=== PATIENT | female | born 1945 | race Caucasian/White ===

== ENCOUNTER 2020-05-15 18:53 | Inpatient (IN) | payer OTHER ==
--- OUTSIDE RECORDS SUMMARY | 2020-05-15 18:55 | XMS REPORT | Continuity of Care Document ---
:1945 Author Organization [facility] t Address [address] [place] [address] Dr. [address]. [address] [place] [address] Care Team Providers Name Role Phone Lab, [facility]bin Pob I Attending Clinician Unavailable Problems This patient has no known problems. Allergies, Adverse Reactions, Alerts This patient has no known allergies or adverse reactions. Medications This patient has no known medications. Procedures This patient has no known procedures. Encounters Start End Encounter Admission Attending Care Care Encounter Source Date/Time Date/Time Type Type Clinicians Facility Department ID 2020-05-09 2020-05-09 Laboratory Lab, Adc [facility] [id number] 17:09:28 17:29:28 Only Fam Pob I [facility] [id number] [place] [id number] Jeri [id number] [address]al [address] Results This patient has no known results.
--- OUTSIDE RECORDS SUMMARY | 2020-05-15 18:55 | XMS REPORT | Summary of Care ---
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 [address] [place] [address] Exposure to Medicine - [place] [facility], Adc Fam Pob I SARS-associated [address] [place] [address] coronaviru s ([address] Dx) [place] [address] Allergies Not on Filedocumented as of this encounter (statuses as of 05/09/2020) Medications Not on filedocumented as of this encounter (statuses as of 05/09/2020) Active Problems Not on filedocumented as of this encounter (statuses as of 05/09/2020) Social History Tobacco Use Types Packs/Day Years Used Date Never Assessed Sex Assigned at Date Recorded Not on file COVID-19 Exposure Response Date Recorded In the last month, have you been in contact with No / Unsure 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 documented as of this encounter Last Filed Vital Signs Not on filedocumented in this encounter Nursing Notes Roselyn Mae MA - 05/09/2020 5:00 PM CSTMarcimino Waite is a 74 year old female here for COVID Screening with a Nasopharyngeal Swab All droplet and contact precautions taken with appropriate PPE worn while interacting with patient. ? Goggles ? N95 Mask ? Gloves ? Gown RR: 16 Pulse: 75 O2: 96% Patient educated on plan of care for visit, swabbing technique, risks and benefits of test and length of time to receive results. Verbal consent obtained to perform test. CDC Fact Sheet for Patients nCoV Diagnostic Panel dated 07/01/2019 and Factsheet What to Do if Sick with COVID 19 06/11/19 provided. Patient swabbed per appropriate nasopharyngeal technique, and patient tolerated well. Patient was discharged from the testing clinic in stable condition. 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 documented in this encounter Plan of Treatment Name Type Priority Associated Diagnoses Order S maulik COVID-19 (MOLECULAR LAB Routine Exposure to Expected : 05/09/2020, TESTING SARS-associated Expires: 022 NUCLEIC ACID coronavirus AMPLIFICATION) Health Maintenance Due Date Last Done Comments HEPATITIS C (HCV) SCREEN 1945 Depression Screening 1956 DTaP,Tdap,and Td Vaccines (1 - Tdap) 12/06/1963 Breast Cancer Screening (MAMMOGRAM) 1984 COLON CANCER SCREENING ANNUAL FIT/FOBT 1994 COLON CANCER SCREENING FIT DNA EVERY 3 YEARS 1994 COLON CANCER SCREENING SIGMOIDOSCOPY EVERY 5 YEARS 1994 COLONOSCOPY 1994 Colorectal Cancer Screening 1994 Zoster Recombinant Vaccine (SHINGRIX) (1 of 2) 1994 Medicare Wellness Visit 2009 Osteoporosis Screening 2009 PNEUMOCOCCAL VACCINES 65+ (1 of 1 - PPSV23) 2009 INFLUENZA VACCINE (#1) 2019 documented as of this encounter Results Not on filedocumented in this encounter Visit Diagnoses Diagnosis Exposure to SARS-associated coronavirus - Primary documented in this encounter Additional Health Concerns Infection Onset Date Last Indicated Resolved Time COVID-19 Rule Out 05/09/2020 05/09/2020 documented as of this encounter Insurance Payer Benefit Plan / Subscriber ID Effective Phone Address T e Group Dates [facility] [id number] 2020-Prese Medic are Adv HEALTHCARE - HEALTHCARE nt HMO MANAGED MEDICARE ADV MEDICARE HMO documented as of this encounter
[2020-05-15 19:45] LABS: Protime INR 1.03
[2020-05-15] MEDS ORDERED: NA CHLORIDE 0.9% 1,000 ML ONE (19:59)
[2020-05-15] MEDS ORDERED: METHYLPREDNISOLONE 125 MG INJ ONE (19:59)
[2020-05-15] MEDS ORDERED: IBUPROFEN 400 MG TAB ONE (19:59)
[2020-05-15] MEDS ORDERED: IBUPROFEN 200 MG TAB PO ONE (19:59)
[2020-05-15 20:10] LABS: ALT/SGPT 48 U/L (12-78); AST/SGOT 69 U/L (15-37); Albumin 2.9 g/dL (3.4-5.0); Alkaline Phosphatase 55 U/L (45-117); BUN Blood Urea Nitrogen 22 mg/dL (7-18); Bicarbonate 23 mmol/L (21-32); Bilirubin Direct 0.3 mg/dL (0-0.2); Bilirubin Total 0.7 mg/dL (0.2-1.0); Ferritin 847.5 ng/mL (8-388); Glucose Level 120 mg/dL (74-106); Potassium 3.4 mmol/L (3.5-5.1); Protein, Total 6.9 g/dL (6.4-8.2); Sodium Level 137 mmol/L (136-145); Troponin (Emerg Dept Use Only) < 0.02 ng/mL (0.0-0.045)
--- NOTE | 2020-05-15 20:10 | RAD REPORT ---
EXAM DESCRIPTION: RAD - Chest Single View - 05/15/2020 8:03 pm CLINICAL HISTORY: Cough;Dyspnea Chest pain. COMPARISON: No comparisons FINDINGS: Portable technique limits examination quality. Mild to moderate pulmonary opacities are present bilaterally likely related to viral infection. The h eart is mildly enlarged in size. No displaced fractures.
[2020-05-15] MEDS ORDERED: NA CHLORIDE 0.9% 500 ML ONE ×4 (20:52→21:54)
--- NOTE | 2020-05-15 20:52 | RAD REPORT ---
EXAM DESCRIPTION: US - Extremity Venous Uni Ltd - 05/15/2020 7:53 pm CLINICAL HISTORY: SWELLING Leg swelling and edema. COMPARISON: No comparisons FINDINGS: Left lower extremity venous system was interrogated with Doppler technique. Normal flow, c ompressibility and augmentation was noted. There is no DVT present. IMPRESSION: No evidence of left lower extremity deep venous thrombosis.
--- NOTE | 2020-05-15 20:56 | RAD REPORT ---
EXAM DESCRIPTION: CT - Chest For Pe Angio - 05/15/2020 8:45 pm CLINICAL HISTORY: Chest pain. Dyspnea;Cough COMPARISON: No comparisons TECHNIQUE: CT angiogram of the pulmonary arteries was performed with MIP. All CT scans are performed using dose optimization technique as appropriate and may include automated exposure control or mA/KV adjustment according to patient size. FINDINGS: No evidence of pulmonary thromboembolism. No acute aortic finding demonstrated. Moderate interstitial alveolar lung opacities are present greatest along the periphery of both lungs and in the lung bases compatible COVID-19 infection. No significant pericardial or pleural fluid. No concerning bony finding. IMPRESSION: No evidence of pulmonary thromboembolism. Moderate findings which would be compatible with COVID-19 infection as detailed.
[2020-05-15] MEDS ORDERED: CALCIUM GLUCONATE 1 GM IVPB 1 GM/50 ML BAG IV ONE (21:32)
[2020-05-15] MEDS ORDERED: KCL 20 MEQ/100 mL IVPB 20 MEQ/100 ML BAG IV ONE (21:32)
--- NOTE | 2020-05-15 21:40 | ER ---
Nurse's Notes [facility] Name: Pauly Waite Age: 74 yrs Sex: Female : 1945 Arrival Date: 05/15/2020 Time: 18:55 Bed 25 Private MD: Diagnosis: Coronavirus infection, unspecified;Pneumonia, unspecified organism;Hypotension, unspecified;Sepsis, unspecified organism Presentation: 05/15 19:05 Chief complaint: Patient states: Covid+ 05/08/2020. S/S started 05/05/2020. Here cause I ca1 don't seem to get better. All I want to do is sleep and I have not eaten anything in over a week. Persistent fever. Tylenol last dose at 1700 today. Coronavirus screen: Client reports previous positive COVID test result. Date of collection: May 08, 2020 Staff notified of need for isolation. Ebola Screen: Patient negative for fever greater than or equal to 101.5 degrees Fahrenheit, and additional compatible Ebola Virus Disease symptoms Patient denies exposure to infectious person. Patient denies travel to an Ebola-affected area in the 21 days before illness onset. No symptoms or risks identified at this time. Initial Sepsis Screen: Does the patient meet any 2 criteria? Temp <36.0*C (96.8*F)) or > 38.3*C (100.9*F). Mean Arterial Pressure (MAP) < 65. Yes Does the patient have a suspected source of infection? Yes: Productive cough/pneumonia. Risk Assessment: Do you want to hurt yourself or someone else? Patient reports no desire to harm self or others. Onset of symptoms was May 15, 2020. 19:05 Method Of Arrival: Wheelchair ca1 19:05 Acuity: TESHA 2 ca1 Triage Assessment: 19:30 General: Appears in no apparent distress. Behavior is calm, cooperative, appropriate ll2 for age. Historical: - Allergies: 19:10 No Known Allergies; ca1 - Home Meds: 19:10 losartan oral oral [Active]; ca1 - PMHx: 19:10 Hypertension; Thyroid problem; ca1 - PSHx: 19:10 None; ca1 - Family history:: not pertinent. - Hospitalizations: : No recent hospitalization is reported. Screenin:20 Abuse screen: Denies threats or abuse. Nutritional screening: No deficits noted. ll2 Tuberculosis screening: No symptoms or risk factors identified. Fall Risk None identified. Assessment: 19:30 Reassessment: notified provider of pt blood pressure. remains low. ordered bolus. zb 20:45 Reassessment: notified provider bp remains low. bolus ordered. zb 22:19 Reassessment: Reassessment: notified provider of patient blood pressure remains low. zb 23:15 Reassessment: Patient and/or family updated on plan of care and expected duration. Pain ll2 level reassessed. Patient is alert, oriented x 3, equal unlabored respirations, skin warm/dry/pink. 05/16 00:15 Reassessment: Patient and/or family updated on plan of care and expected duration. Pain ll2 level reassessed. Patient is alert, oriented x 3, equal unlabored respirations, skin warm/dry/pink. Pain: Denies pain. Vital Signs: 05/15 19:05 BP 73 / 46; Pulse 66; Resp 18 S; Temp 101(O); Pulse Ox 88% on R/A; Weight 75.75 kg (R); ca1 Height 5 ft. 4 in. (162.56 cm) (R); Pain 0/10; 22:12 BP 80 / 41; Pulse 56; Resp 9; Pulse Ox 90% on 2 lpm NC; ll2 22:32 BP 82 / 47; rn 23:15 BP 97 / 53; Pulse 66; Resp 22; Pulse Ox 94% on 2 lpm NC; ll2 05/16 00:15 BP 80 / 47; Pulse 55; Resp 16; Pulse Ox 94% on 2 lpm NC; ll2 05/15 19:05 Body Mass Index 28.67 (75.75 kg, 162.56 cm) ca1 ED Course: 05/15 18:55 Patient arrived in ED. as 19:09 Triage completed. ca1 19:10 Soy Jonas MD is Attending Physician. rn 19:10 Arm band placed on right wrist. ca1 19:20 Patient has correct armband on for positive identification. Placed in gown. Bed in low ll2 position. Call light in reach. Side rails up X 1. monitor worker on. Pulse ox on. NIBP on. 19:20 No provider procedures requiring assistance completed. Inserted saline lock: 20 gauge ll2 in right antecubital area, using aseptic technique. Blood collected. 19:34 Mandy Gibson, RN is Primary Nurse. ll2 19:38 D-Dimer Sent. ll2 19:38 Blood Culture Adult (2) Sent. ll2 19:38 BMP Sent. ll2 19:38 C-Reactive Protein Sent. ll2 19:38 Troponin (emerg Dept Use Only) Sent. ll2 19:38 Ptt, Activated Sent. ll2 19:38 PT-INR Sent. ll2 19:38 Procalcitonin Sent. ll2 19:38 LFT's Sent. ll2 19:38 Lactate Sent. ll2 19:39 Ferritin Sent. ll2 21:40 Bassam Chavez is Hospitalizing Provider. rn 05/17 07:53 Primary Nurse role handed off by Mandy Gibson RN sv 12:51 Patient admitted, IV remains in place. ss Administered Medications: 05/15 19:58 Drug: NS 0.9% 1000 ml Route: IV; Rate: 1000 ml; Site: right antecubital; ll2 20:40 Follow up: Response: No adverse reaction; IV Intake: 1000ml ll2 19:59 Drug: SOLU-Medrol 125 mg Route: IVP; Site: right antecubital; ll2 20:58 Follow up: Response: No adverse reaction ll2 19:59 Drug: Motrin 600 mg Route: PO; ll2 22:23 Follow up: Response: No adverse reaction ll2 20:00 Drug: NS 0.9% 500 ml Route: IV; Rate: bolus; Site: right antecubital; zb 21:00 Drug: NS 0.9% 500 ml Route: IV; Rate: bolus; Site: right antecubital; zb 22:15 Follow up: Response: No adverse reaction; IV Status: Completed infusion; IV Intake: ll2 500ml 21:33 Drug: Calcium Gluconate 1 grams Route: IVPB; Infused Over: 60 mins; Site: right ll2 antecubital; 22:35 Follow up: Response: No adverse reaction; IV Status: Completed infusion; IV Intake: ll2 100ml 22:00 Drug: NS 0.9% 500 ml Route: IV; Rate: bolus; Site: right antecubital; zb 23:00 Follow up: Response: No adverse reaction; IV Status: Completed infusion ll2 22:57 Drug: Potassium Chloride 10 mEq Route: IV; Rate: calculated rate; Site: right ll2 antecubital; 05/16 00:00 Follow up: Response: No adverse reaction; IV Status: Completed infusion; IV Intake: [id number] 00:30 Drug: Levophed (4 mg/250 mL D5W 4 mcg/min Route: IV; Rate: calculated rate; Site: right ll2 femoral; Point of Care Testing: Blood Glucose: 00:00 Blood Glucose: 127 mg/dL; ll2 Ranges: Intake: 05/15 20:40 IV: 1000ml; Total: 1000ml. ll2 22:15 IV: 500ml; Total: 1500ml. ll2 22:35 IV: 100ml; Total: 1600ml. ll2 05/16 00:00 IV: 50ml; Total: 1650ml. ll2 Outcome: 05/15 21:40 Decision to Hospitalize by Provider. rn 05/17 12:51 Admitted to ER Hold. Please see [facility] for further documentation. ss Instructed on the need for admit. 12:53 Patient left the ED. ss Signatures: Mony Prakash, RN RN Elizabeth Vance Roman, MD MD rn Smirch, Shelby, RN RN ss Amanda Naqvi RN RN ca1 Mandy Gibson RN RN ll2 Anel Joshi RN RN zb Corrections: (The following items were deleted from the chart) 05/15 19:18 19:05 Chief complaint: Patient states: Covid+ 05/08/2020. S/S started 05/05/2020. Here ca1 cause I don't seem to get better. All I want to do is sleep and I have not eaten anything in over a week. Persistent fever ca1 22:55 22:19 Reassessment: henok whiting
--- NOTE | 2020-05-15 21:41 | EDPHYS ---
Physician Documentation [facility] Name: Pauly Waite Age: 74 yrs Sex: Female : 1945 Arrival Date: 05/15/2020 Time: 18:55 Bed 25 Private MD: ED Physician Soy Jonas HPI: 05/15 19:18 This 74 yrs old Female presents to ER via Wheelchair with complaints of Fever rn - covid+. 19:18 The patient reports fever, not measured (subjective). Onset: The symptoms/episode rn began/occurred 1 week(s) ago. Modifying factors: there are no obvious modifying factors. Associated signs and symptoms: Pertinent positives: cough, Pertinent negatives: abdominal pain, altered mental status, diarrhea, skin rash. Severity of symptoms: At their worst the symptoms were mild in the emergency department the symptoms are unchanged. The patient has not experienced similar symptoms in the past. The patient has not recently seen a physician. Reports began with cough 1 week ago, tested and COVID +, reports mild SOB and non-productive cough. . Historical: - Allergies: 19:10 No Known Allergies; ca1 - Home Meds: 19:10 losartan oral oral [Active]; ca1 - PMHx: 19:10 Hypertension; Thyroid problem; ca1 - PSHx: 19:10 None; ca1 - Family history:: not pertinent. - Hospitalizations: : No recent hospitalization is reported. ROS: 19:18 Constitutional: + fever Eyes: Negative for injury, pain, redness, and discharge, Neck: rn Negative for injury, pain, and swelling, Cardiovascular: Negative for chest pain, palpitations, and edema, Respiratory: + cough and mild sob Abdomen/GI: Negative for abdominal pain, nausea, vomiting, diarrhea, and constipation, Back: Negative for injury and pain, MS/Extremity: Negative for injury and deformity, Skin: Negative for injury, rash, and discoloration, Neuro: Negative for headache, numbness, tingling, and seizure. Exam: 19:18 Constitutional: This is a well developed, well nourished patient who is awake, alert, rn and in no acute distress. Head/Face: Normocephalic, atraumatic. ENT: dry MM Cardiovascular: Regular rate and rhythm. No pulse deficits. Respiratory: No increased work of breathing, no retractions or nasal flaring. Abdomen/GI: Soft, non-tender Skin: Warm, dry MS/ Extremity: Pulses equal, no cyanosis. Neurovascular intact. Full, normal range of motion. LLE > RLE circumference Neuro: Awake and alert, GCS 15 Vital Signs: 19:05 BP 73 / 46; Pulse 66; Resp 18 S; Temp 101(O); Pulse Ox 88% on R/A; Weight 75.75 kg (R); ca1 Height 5 ft. 4 in. (162.56 cm) (R); Pain 0/10; 22:12 BP 80 / 41; Pulse 56; Resp 9; Pulse Ox 90% on 2 lpm NC; ll2 22:32 BP 82 / 47; rn 23:15 BP 97 / 53; Pulse 66; Resp 22; Pulse Ox 94% on 2 lpm NC; ll2 05/16 00:15 BP 80 / 47; Pulse 55; Resp 16; Pulse Ox 94% on 2 lpm NC; ll2 05/15 19:05 Body Mass Index 28.67 (75.75 kg, 162.56 cm) ca1 Procedures: 05/15 23:32 Central Line: the site was prepped with Betadine, in sterile fashion, a triple lumen jr8 catheter was inserted, in the right femoral vein, in 1 attempts. placement was verified, by blood return, the site was dressed with 4X4s, Tegaderm, foam tape, using sterile technique, the patient tolerated the procedure, well. MDM: 19:10 Patient medically screened. rn 21:38 Differential diagnosis: viral Infection, URI, pneumonia. Data reviewed: vital signs, rn nurses notes, lab test result(s), EKG, radiologic studies, CT scan, plain films, and as a result, I will admit patient. Counseling: I had a detailed discussion with the patient and/or guardian regarding: the historical points, exam findings, and any diagnostic results supporting the discharge/admit diagnosis, lab results, radiology results, the need for further work-up and treatment in the hospital. Response to treatment: There is no appreciated change of the patient's symptoms at this time, and as a result, I will admit patient. Admission orders: after a detailed discussion of the patient's condition and case, the admit orders are written by me. ED course: Pt with COVID pneumonia, with oxygen requirement and hypotension, will admit to Dr. Chavez in ICU, completing fluid challenge, may need central line for pressors, will reeval. . 22:46 ED course: Central line being placed by admitting service, PA. Roge. rn 05/15 19:18 Order name: D-Dimer rn 05/15 19:18 Order name: Blood Culture Adult (2) rn 05/15 19:18 Order name: BMP rn 05/15 19:18 Order name: C-Reactive Protein rn 05/15 19:18 Order name: CBC with Diff; Complete Time: 22:37 rn 05/15 19:18 Order name: Ferritin rn 05/15 19:18 Order name: Lactate rn 05/15 19:18 Order name: LFT's rn 05/15 19:18 Order name: Procalcitonin rn 05/15 19:18 Order name: PT-INR rn 05/15 19:18 Order name: Ptt, Activated rn 05/15 19:18 Order name: Troponin (emerg Dept Use Only) rn 05/15 19:50 Order name: Protime (+INR); Complete Time: 19:51 EDMS 05/15 19:50 Order name: PTT, Activated Partial Thromb; Complete Time: 19:51 EDMS 05/15 19:50 Order name: D-Dimer; Complete Time: 19:51 EDMS 05/15 20:10 Order name: Basic Metabolic Panel; Complete Time: 20:11 EDMS 05/15 20:10 Order name: Liver (Hepatic) Function; Complete Time: 20:11 EDMS 05/15 20:10 Order name: Troponin (Emerg Dept Use Only); Complete Time: 20:11 EDMS 05/15 20:10 Order name: C-Reactive Protein; Complete Time: 20:11 EDMS 05/15 20:10 Order name: Ferritin; Complete Time: 20:11 EDMS 05/15 20:10 Order name: Lactate; Complete Time: 20:11 EDMS 05/15 21:04 Order name: Procalcitonin; Complete Time: 21:10 EDMS 05/15 22:28 Order name: Glucose, Ancillary Testing; Complete Time: 22:37 EDMS 05/15 23:46 Order name: ABG; Complete Time: 07:09 rn 05/15 23:58 Order name: Urine Microscopic Only jr8 05/16 04:06 Order name: Urine Dipstick--Ancillary (enter results) tt3 05/16 04:32 Order name: UR PROTEIN; Complete Time: 07:09 EDMS 05/15 19:18 Order name: CXR XRAY rn 05/15 19:22 Order name: Extremity Venous Uni Ltd US rn 05/15 19:52 Order name: CT Chest For PE Angio rn 05/15 20:11 Order name: RAD; Complete Time: 20:33 EDMS 05/15 20:53 Order name: US; Complete Time: 21:10 EDMS 05/15 20:58 Order name: CT; Complete Time: 21:10 EDMS 05/16 04:55 Order name: Urine Microscopic Only; Complete Time: 07:09 EDMS 05/16 05:13 Order name: SARS-COV-2 RT PCR; Complete Time: 07:09 EDMS 05/16 05:46 Order name: CBC with Automated Diff; Complete Time: 07:09 EDMS 05/16 06:10 Order name: Cortisol; Complete Time: 07:09 EDMS 05/16 06:20 Order name: Osmolality, Urine; Complete Time: 07:09 EDMS 05/16 06:49 Order name: Basic Metabolic Panel; Complete Time: 07:09 EDMS 05/16 06:49 Order name: Lipid Profile; Complete Time: 07:09 EDMS 05/16 06:49 Order name: C-Reactive Protein; Complete Time: 07:09 EDMS 05/16 06:49 Order name: Thyroid Stimulating Hormone; Complete Time: 07:09 EDMS 05/16 06:49 Order name: Ferritin; Complete Time: 07:09 EDMS 05/16 06:53 Order name: CBC Smear Scan; Complete Time: 07:09 EDMS 05/16 12:21 Order name: US; Complete Time: 07:09 EDMS 05/16 14:35 Order name: Gram Stain--Aerobic Bottle EDMS 05/16 14:35 Order name: Gram Stain--Anaerobic Bottle EDMS 05/17 05:47 Order name: Renal Panel; Complete Time: 07:09 EDMS 05/17 05:47 Order name: Magnesium; Complete Time: 07:09 EDMS 05/17 06:47 Order name: PTH Intact; Complete Time: 07:09 EDMS 05/17 07:46 Order name: Urine Culture EDMS 05/17 09:02 Order name: Vancomycin Level Trough EDMO 05/15 19:18 Order name: EKG; Complete Time: 19:19 rn 05/15 19:18 Order name: Cardiac monitoring; Complete Time: 19:34 rn 05/15 19:18 Order name: Droplet/Contact Precautions; Complete Time: 19:38 rn 05/15 19:18 Order name: EKG - Nurse/Tech; Complete Time: 19:38 rn 05/15 19:18 Order name: IV Start; Complete Time: 19:35 rn 05/15 19:18 Order name: Labs collected and sent; Complete Time: 19:35 rn 05/15 19:18 Order name: O2 Per Protocol; Complete Time: 19:35 rn 05/15 19:18 Order name: O2 Sat Monitoring; Complete Time: 19:34 rn 05/15 22:04 Order name: Glucose Level; Complete Time: 22:25 rn 05/15 23:37 Order name: CONS Physician Consult EDMO 05/15 23:58 Order name: Urine Dipstick-Ancillary (obtain specimen); Complete Time: 04:05 jr8 Administered Medications: 19:58 Drug: NS 0.9% 1000 ml Route: IV; Rate: 1000 ml; Site: right antecubital; ll2 20:40 Follow up: Response: No adverse reaction; IV Intake: 1000ml ll2 19:59 Drug: SOLU-Medrol 125 mg Route: IVP; Site: right antecubital; ll2 20:58 Follow up: Response: No adverse reaction ll2 19:59 Drug: Motrin 600 mg Route: PO; ll2 22:23 Follow up: Response: No adverse reaction ll2 20:00 Drug: NS 0.9% 500 ml Route: IV; Rate: bolus; Site: right antecubital; zb 21:00 Drug: NS 0.9% 500 ml Route: IV; Rate: bolus; Site: right antecubital; zb 22:15 Follow up: Response: No adverse reaction; IV Status: Completed infusion; IV Intake: ll2 500ml 21:33 Drug: Calcium Gluconate 1 grams Route: IVPB; Infused Over: 60 mins; Site: right ll2 antecubital; 22:35 Follow up: Response: No adverse reaction; IV Status: Completed infusion; IV Intake: ll2 100ml 22:00 Drug: NS 0.9% 500 ml Route: IV; Rate: bolus; Site: right antecubital; zb 23:00 Follow up: Response: No adverse reaction; IV Status: Completed infusion ll2 22:57 Drug: Potassium Chloride 10 mEq Route: IV; Rate: calculated rate; Site: right ll2 antecubital; 05/16 00:00 Follow up: Response: No adverse reaction; IV Status: Completed infusion; IV Intake: [id number] 00:30 Drug: Levophed (4 mg/250 mL D5W 4 mcg/min Route: IV; Rate: calculated rate; Site: right ll2 femoral; Point of Care Testing: Blood Glucose: 00:00 Blood Glucose: 127 mg/dL; ll2 Ranges: Critical Glucose Levels:Adult <50 mg/dl or >400 mg/dl <40 mg/dl or >180 mg/dl Disposition: 05/15/20 21:40 Hospitalization ordered by Bassam Chavez for Inpatient Admission. Preliminary diagnosis are Coronavirus infection, unspecified, Pneumonia, unspecified organism, Hypotension, unspecified, Sepsis, unspecified organism. - Bed requested for Telemetry/MedSurg (Inpatient). - Status is Inpatient Admission. ss - Condition is Fair. - Problem is new. - Symptoms are unchanged. Critical care time excluding procedures: 05/15 21:39 Critical care time: Bedside Care: 25 minutes, Consultation: 5 minutes. Total time: 30 rn minutes Addendum: 05/20/2020 01:30 Co-signature as Attending Physician, Soy Jonas MD. r n Signatures: Dispatcher [employer] EDMO Tessie Willett RN RN mw Woody, Diana, RN RN dw Anderson, Corey, MD MD cha Nieto, Roman, MD MD rn Smirch, Shelby, RN RN ss Roszak, Josh, PA PA jr8 Amanda Naqvi RN RN [facility] Mandy Gibson RN RN ll2 Brown, Zipporah, RN RN zb Corrections: (The following items were deleted from the chart) 05/15 19:39 19:18 CBC+H.LAB.BRZ ordered. [facility] EDMO 22:06 21:40 Hospitalization Ordered by Bassam Chavez for Inpatient Admission. Preliminary diagnosis is Coronavirus infection, unspecified; Pneumonia, unspecified organism; Hypotension, unspecified; Sepsis, unspecified organism. Bed requested for Intensive Care Unit. Status is Inpatient Admission. Condition is Fair. Problem is new. Symptoms are unchanged. rn 05/16 00:05/15 23:58 Osmolality, Urine ordered. [facility] 05/16 00:05/15 23:58 URINE FOR PROTEIN, RANDOM+CHEM UR.LAB.BRZ ordered. [facility] 05/17 12:09 05/15 22:06 05/15/2020 21:40 Hospitalization Ordered by Bassam Chavez for Inpatient dw Admission. Preliminary diagnosis is Coronavirus infection, unspecified; Pneumonia, unspecified organism; Hypotension, unspecified; Sepsis, unspecified organism. Bed requested for [facility] ER HOLD. Status is Inpatient Admission. Condition is Fair. Problem is new. Symptoms are unchanged. 05/17 12:53 12:05/15/2020 21:40 Hospitalization Ordered by Bassam Chavez for Inpatient ss Admission. Preliminary diagnosis is Coronavirus infection, unspecified; Pneumonia, unspecified organism; Hypotension, unspecified; Sepsis, unspecified organism. Bed requested for Telemetry/MedSurg (Inpatient). Status is Inpatient Admission. Condition is Fair. Problem is new. Symptoms are unchanged. dw
[2020-05-15 22:21] LABS: Absolute Lymphocytes (CBC) 0.4 K/uL (0.7-4.9); Basophils % 0.3 % (0-1.3); Hematocrit 31.6 % (36.0-45.0); Lymphocytes % 11.1 % (15.3-44.8); MPV 7.9 fL (7.6-11.3); RBC Red Blood Cell Count 3.74 M/uL (3.86-4.86)
[2020-05-15] MEDS ORDERED: Ringers Lactate 1,000 ML IV ONE (23:19)
[2020-05-16 00:10] LABS: Arterial Blood Carboxyhemoglob 0.8 % (0-1.5); Blood Gas Oxyhemoglobin 89.4 % (94-97); Blood O2 Saturation 90.8 % (92-98.5)
[2020-05-16] MEDS ORDERED: NOREPINEPHRINE 4 MG/4 ML VIAL ONE (00:19)
[2020-05-16] MEDS ORDERED: NA CHLORIDE 0.9% 0 ML ONE (00:19)
[2020-05-16] MEDS ORDERED: D5W 250 ML IV ONE (01:47)
--- NOTE | 2020-05-16 03:35 | P.HP ---
Certification for Inpatient Patient admitted to: Inpatient With expected LOS: >2 Midnights Patient will require the following post-hospital care: None Practitioner: I am a practitioner with admitting privileges, knowledge of patient current condition, hospital course, and medical plan of care. Services: Services provided to patient in accordance with Admission requirements found in Title 42 Section 412.3 of the Code of Federal Regulations <Chandra Garnett - Last Filed: 05/16/20 03:28> Patient History Date of Service: 05/15/20 Primary Care Provider: none Reason for admission: COVID pneumonia, hypoxia, hypotension History of Present Illness: Ms. Waite is a 74 yo F with HTN and hyperthyroidism here today for COVID+ test 05/08/20 and fever, fatigue and cough since 05/12. She denies N/V/D. On arrival, her O2sats are 88%. On exam, she is 94% spO2 on 3L of O2, hypotensive to 82/40, and difficult to arouse and keep awake during the exam. CXR revealed viral pneumonia. CTPE and Doppler US negative. Patient continues to be hypotensive after receiving 3 L of fluid. Femoral central line placed for administration of levophed. Patient found to have NAGMA with suspicion for RTA. Na 137, K 3.4, Cl 106, HCO3 23, BUN 22, Cr 1.43, Glu 120. CRP 55.2 and ferritin 847.5. Home medications list reviewed: No - Past Medical/Surgical History Diabetic: No -: HTN -: hyperthyroidism -: varicose vein stripping - Family History Mother -: Hypertension - Social History Smoking Status: Never smoker Counseled patient to stop smoking for: less than 10 minutes Smoking therapy provided: No Alcohol use: No CD- Drugs: No Caffeine use: No Place of Residence: Home <Chandra Garnett - Last Filed: 05/16/20 03:28> Date of Service: 05/16/20 <venecia judd - Last Filed: 05/16/20 19:00> Allergies cortisone [Cortisone] Allergy (Verified 03/21/14 08:11) Rash Home Medications: Atorvastatin Calcium [Lipitor] 10 mg PO BEDTIME 03/21/14 Doxepin HCl [Sinequan] 10 mg PO DAILY 03/21/14 Levothyroxine [Synthroid] 50 mcg PO DAILY 03/21/14 Metoprolol Cosby/Hydrochlorothiaz [Dutoprol 50-12.5 mg Tablet] 1 each PO DAILY 03/21/14 Review of Systems General: Fever, Other (fatigue), As per HPI Eyes: Unremarkable ENT: Unremarkable Respiratory: Cough, As per HPI Cardiovascular: Unremarkable Gastrointestinal: Unremarkable Genitourinary: Unremarkable Musculoskeletal: Unremarkable Integumentary: Unremarkable Neurological: Other (fatigue, difficulty arousing ), As per HPI Lymphatics: Unremarkable <Chandra Garnett - Last Filed: 05/16/20 03:28> Physical Examination - Vital Signs Temperature: 101 F Blood Pressure: 73/46 Pulse: 66 Respirations: 18 Pulse Ox (%): 88 - Physical Exam General: Oriented x3, Mild distress, Other (difficulty arouse during exam 2/2 fatigue) HEENT: Atraumatic, Normocephalic, PERRLA, Mucous membr. moist/pink Neck: Supple, JVD not distended, No Thyromegaly, No LAD Respiratory: Clear to auscultation bilaterally, Normal air movement, Diminished Cardiovascular: No edema, Normal pulses, Regular rate/rhythm, Normal S1 S2, No gallops, No rubs, No murmurs Capillary refill: <2 Seconds Gastrointestinal: Normal bowel sounds, Soft and benign, Non-distended, No ascites, No tenderness, No masses, No rebound, No guarding Musculoskeletal: No clubbing, No swelling, No contractures, No erythema, No tenderness, No warmth Integumentary: No rashes, No breakdown, No significant lesion, No tenderness/swelling, No erythema, No warmth, No cyanosis Neurological: Normal speech, Sensation intact, Other (fatigue) Lymphatics: No axilla or inguinal lymphadenopathy - Studies Laboratory Data (last 24 hrs) 05/15/20 22:07: WBC 3.60 L, Hgb 10.8 L, Hct 31.6 L, Plt Count 145 L 05/15/20 19:24: Sodium 137, Potassium 3.4 L, BUN 22 H, Creatinine 1.43 H, Glucose 120 H, Total Bilirubin 0.7, AST 69 H, ALT 48, Alkaline Phosphatase 55 05/15/20 19:24: PT 12.2, INR 1.03, APTT 29.5 <Chandra Garnett - Last Filed: 05/16/20 03:28> - Studies Laboratory Data (last 24 hrs) 05/15/20 22:07: WBC 3.60 L, Hgb 10.8 L, Hct 31.6 L, Plt Count 145 L 05/15/20 19:24: Sodium 137, Potassium 3.4 L, BUN 22 H, Creatinine 1.43 H, Glucose 120 H, Total Bilirubin 0.7, AST 69 H, ALT 48, Alkaline Phosphatase 55 05/15/20 19:24: PT 12.2, INR 1.03, APTT 29.5 <venecia judd - Last Filed: 05/16/20 19:00> Assessment and Plan - Problems (Diagnosis) (1) Pneumonia due to COVID-19 virus Onset Date: ~05/15/20 Current Visit: Yes Status: Acute Plan: - vitamin D/C, zinc - solumedrol - DVT prophylaxis - Ivermectin 12 mg - pepcid - melatonin - pulmonology and respiratory therapy consulted for oxygen titration - K+ protocol (2) COVID-19 Onset Date: ~05/08/20 Current Visit: Yes Status: Acute Plan: see above (3) Hypotension Onset Date: ~05/15/20 Current Visit: Yes Status: Acute Plan: patient hypotensive to 73/46 on arrival, given 3 L of fluid in the ER with no response. femoral central line placed for administration of levophed 5 mcg/min. - will continue to monitor - admit to ICU bed - cortisol and TSH ordered Qualifiers: Hypotension type: hypotension due to hypovolemia Qualified Code(s): I95.89 - Other hypotension; E86.1 - Hypovolemia (4) Normal anion gap metabolic acidosis Onset Date: ~05/15/20 Current Visit: Yes Status: Acute Plan: patient found to have a nonanion gap metabolic acidosis with concern for RTA. patient denies diarrhea. - awaiting urine osmolality for further workup Discharge Plan: Home Plan to discharge in: Greater than 2 days - Advance Directives Does patient have a Living Will: No Does patient have a Durable POA for Healthcare: No - Code Status/Comfort Care Code Status Assessed: Yes Code Status: Full Code Critical Care: Yes Time Spent Managing Pts Care (In Minutes): 90 <Chandra Garnett - Last Filed: 05/16/20 03:28> - Problems (Diagnosis) (1) COVID-19 Onset Date: ~05/08/20 Current Visit: Yes Status: Acute (2) Hypotension Onset Date: ~05/15/20 Current Visit: Yes Status: Acute Qualifiers: Hypotension type: hypotension due to hypovolemia Qualified Code(s): I95.89 - Other hypotension; E86.1 - Hypovolemia (3) Pneumonia due to COVID-19 virus Onset Date: ~05/15/20 Current Visit: Yes Status: Acute (4) UTI (urinary tract infection) Current Visit: Yes Status: Acute (5) Hypovolemic shock Current Visit: Yes Status: Acute Physician Review: Patient Assessed, Agree with Above Assessment and Plan Physician Review Additional Text: Hypovolemic shock. UTI. COVID 19 pneumonia. Start broad-spectrum IV antibiotics. IV steroid. Weaned off Levophed as tolerated. Follow cultures. <venecia judd - Last Filed: 05/16/20 19:00>
[2020-05-16] MEDS ORDERED: IVERMECTIN 3 MG TABLET PO ONE (04:27)
[2020-05-16] MEDS: Ringers Lactate 1,000 ML IV SCH ×2 (04:27→14:27)
[2020-05-16] MEDS ORDERED: ACETAMINOPHEN 325 MG TABLET PO PRN (04:27)
[2020-05-16] MEDS ORDERED: NOREPINEPHRINE 4 MG in D5W 250 ML IV PRN (04:27)
[2020-05-16 04:55] LABS: Urine Bacteria >50 /HPF (<20); Urine Mucus 1+ /HPF (NONE SEEN)
[2020-05-16 05:43] LABS: Absolute Lymphocytes (CBC) 0.3 K/uL (0.7-4.9); Basophils % 0.2 % (0-1.3); Hematocrit 39.7 % (36.0-45.0); Lymphocytes % 8.6 % (15.3-44.8); RBC Red Blood Cell Count 4.63 M/uL (3.86-4.86)
[2020-05-16 06:49] LABS: C-Reactive Protein 47.1 mg/L (<3.00); Ferritin 925.1 ng/mL (8-388); Potassium 3.8 mmol/L (3.5-5.1); Thyroid Stimulating Hormone 0.081 uIU/mL (0.360-3.740)
[2020-05-16 06:52] LABS: White Blood Cell Scan OK (OK)
[2020-05-16 06:53] LABS: Blood Morphology Comment NOT SEEN (NOT SEEN); Platelet Estimate ADEQ
--- NOTE | 2020-05-16 07:55 | EKG ---
Test Date: 2020-05-15 Test Time: 20:11:15 Glassie: RITA MEASUREMENT RESULTS: Intervals: Rate: 57 NV: 164 QRSD: 96 QT: 436 QTc: 424 Nabb: P: 93 NV: 164 QRS: -22 T: 25 INTERPRETIVE STATEMENTS: Sinus bradycardia with premature atrial complexes Otherwise normal ECG Compared to ECG 11/09/2001 14:56:00 Atrial premature complex(es) now present T-wave abnormality no longer present Electronically Signed On 05-16-20 07:49:56 [employer] MAINTENANCE by Eusebio Davis
[2020-05-16] MEDS ORDERED: CEFEPIME 1 GM/VIAL IV SCH (09:00)
[2020-05-16] MEDS ORDERED: APIXABAN 2.5 MG TABLET PO SCH (09:00)
[2020-05-16] MEDS ORDERED: VANCOMYCIN 1.5 GM in NA CHLORIDE 0.9% 500 ML IVPB ONE (09:00)
[2020-05-16] MEDS ORDERED: VANCOMYCIN 1 GM in NA CHLORIDE 0.9% 250 ML IVPB SCH (09:00)
[2020-05-16] MEDS: FAMOTIDINE 20 MG/2 ML VIAL IV SCH ×2 (09:00→21:54)
[2020-05-16] MEDS: VITAMIN D 5,000 UNIT CAP PO SCH (09:00)
[2020-05-16] MEDS: ZINC SULFATE 220 MG CAP PO SCH (10:22)
[2020-05-16] MEDS: METHYLPREDNISOLONE 40 MG INJ IV SCH ×2 (10:25→21:54)
[2020-05-16] MEDS: CEFEPIME/SWI 1gm 10 ML IV SCH ×2 (10:26→21:54)
[2020-05-16] MEDS: APIXABAN 5 MG TABLET PO SCH ×2 (10:26→21:54)
[2020-05-16] MEDS: ASCORBIC ACID 500 MG TABLET PO SCH ×4 (10:26→21:54)
[2020-05-16] MEDS ORDERED: METHYLPREDNISOLONE 40 MG INJ ONE ×2 (10:28→21:21)
[2020-05-16] MEDS ORDERED: ASCORBIC ACID 500 MG TABLET ONE ×4 (10:28→21:21)
[2020-05-16] MEDS ORDERED: APIXABAN 5 MG TABLET ONE ×2 (10:28→21:20)
[2020-05-16] MEDS ORDERED: FAMOTIDINE 20 MG TAB ONE (10:29)
[2020-05-16] MEDS ORDERED: CEFEPIME/SWI 1gm 10 ML ONE ×2 (10:29→21:21)
[2020-05-16] MEDS ORDERED: VITAMIN D 1000 UNIT TAB ONE (10:31)
[2020-05-16] MEDS ORDERED: ZINC SULFATE 220 MG CAP ONE (10:32)
[2020-05-16] MEDS ORDERED: FAMOTIDINE 20 MG/2 ML VIAL IV ONE ×2 (10:46→21:21)
[2020-05-16] MEDS ORDERED: CALCIUM GLUC 10% INJ 4.65 MEQ in NA CHLORIDE 0.9% 100 ML IV ONE (11:26)
--- NOTE | 2020-05-16 11:30 | P.CNS ---
Date of Consult: 05/16/20 Reason for Consult: ERIC Primary Care Provider: none Chief Complaint: COVID pneumonia, hypoxia, hypotension History of Present Illness: A 74 yo woman with PMHx of HTN and hyperthyroidism recently Dx with COVID presented to ER with weakness and SOB Pt was hypoxic and hypotemsive started on Levophed, Cr 1.4 Review of Systems: Head and Neck: No red eye. No ear pain. GI: No nausea, no vomiting. : No polyuria, no dysuria, no hematuria. 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 Respiratory: shortness of breath, improving Cardiovascular: No chest pain. Endocrine: No polydipsia. Skin: No rash. Neuro: Has neuropathy. Musculoskeletal: No back pain . Physical exam general: Awake and alert , NAD Neck; Supple, No elevated JVD hear: RRR, normal S1,2 no murmur or rub Abdomen: Soft , Nt Extremities no edema, A/P ERIC due to dehydration resolved Cont IVF mild hypokalmeia due to poor oral intake Cont Ringer lactate encourage pO intake COVID 19 pneumonia on O2, steroids and Ivermictin Total time spent 45min Allergies cortisone [Cortisone] Allergy (Verified 03/21/14 08:11) Rash Home Medications: Atorvastatin Calcium [Lipitor] 10 mg PO BEDTIME 03/21/14 Doxepin HCl [Sinequan] 10 mg PO DAILY 03/21/14 Levothyroxine [Synthroid] 50 mcg PO DAILY 03/21/14 Metoprolol Cosby/Hydrochlorothiaz [Dutoprol 50-12.5 mg Tablet] 1 each PO DAILY 03/21/14 - Past Medical/Surgical History Diabetic: No -: HTN -: hyperthyroidism -: varicose vein stripping - Family History Mother Medical History: Hypertension - Social History Alcohol use: No CD- Drugs: No Caffeine use: No Place of Residence: Home Physical Examination Temp Pulse Resp BP Pulse Ox 42 F L 42 L 16 149/62 H 98 05/16/20 08:00 05/16/20 08:00 05/16/20 08:00 05/16/20 08:00 05/16/20 08:00 Laboratory Data (last 24 hrs) 05/15/20 22:07: WBC 3.60 L, Hgb 10.8 L, Hct 31.6 L, Plt Count 145 L 05/15/20 19:24: Sodium 137, Potassium 3.4 L, BUN 22 H, Creatinine 1.43 H, Glucose 120 H, Total Bilirubin 0.7, AST 69 H, ALT 48, Alkaline Phosphatase 55 05/15/20 19:24: PT 12.2, INR 1.03, APTT 29.5
--- NOTE | 2020-05-16 12:20 | RAD REPORT ---
EXAM DESCRIPTION: US - Renal Ultrasound-Complete - 05/16/2020 11:32 am CLINICAL HISTORY: ERIC, COVID positive COMPARISON: Chest For Pe Angio dated 05/15/2020 FINDINGS: The right kidney measures 9.6 x 4.8 x 5.3 cm. The left kidney measures 9.2 x 5.7 x 5.3 cm . Cortical thickness is normal. Echogenicity is increased slightly for both kidneys. This is typical for medical renal disease. Mild right-sided hydronephrosis is present along with mild dilatation of t he proximal ureter. Mid and distal ureter are obscured by bowel. No left-sided hydronephrosis. No jovan picious mass of either kidney. Bladder is not sufficiently filled for assessment. IMPRESSION: Mild right-sided hydronephrosis. Bilateral medical renal disease evident.
--- NOTE | 2020-05-16 12:53 | P.CNS ---
Date of Consult: 05/16/20 Primary Care Provider: none Chief Complaint: COVID pneumonia, hypoxia, hypotension History of Present Illness: Patient is 74 years of age with history of hypertension and hyperthyroidism tested recently positive for [place] virus admitted with fever with T cough nausea vomiting diarrhea issues little hypoxic on admission is currently doing better she is also hypotensive saturation is satisfactory the nasal cannula oxygen Allergies cortisone [Cortisone] Allergy (Verified 03/21/14 08:11) Rash Home Medications: Atorvastatin Calcium [Lipitor] 10 mg PO BEDTIME 03/21/14 Doxepin HCl [Sinequan] 10 mg PO DAILY 03/21/14 Levothyroxine [Synthroid] 50 mcg PO DAILY 03/21/14 Metoprolol Cosby/Hydrochlorothiaz [Dutoprol 50-12.5 mg Tablet] 1 each PO DAILY 03/21/14 - Past Medical/Surgical History Diabetic: No -: HTN -: hyperthyroidism -: varicose vein stripping - Family History Mother Medical History: Hypertension - Social History Alcohol use: No CD- Drugs: No Caffeine use: No Place of Residence: Home Review of Systems General: Weakness Respiratory: Shortness of Breath Physical Examination Temp Pulse Resp BP Pulse Ox 42 F L 42 L 16 149/62 H 98 05/16/20 08:00 05/16/20 08:00 05/16/20 08:00 05/16/20 08:00 05/16/20 08:00 Laboratory Data (last 24 hrs) 05/15/20 22:07: WBC 3.60 L, Hgb 10.8 L, Hct 31.6 L, Plt Count 145 L 05/15/20 19:24: Sodium 137, Potassium 3.4 L, BUN 22 H, Creatinine 1.43 H, Glucose 120 H, Total Bilirubin 0.7, AST 69 H, ALT 48, Alkaline Phosphatase 55 05/15/20 19:24: PT 12.2, INR 1.03, APTT 29.5 - Problems (1) Pneumonia due to COVID-19 virus Onset Date: ~05/15/20 Current Visit: Yes Status: Acute Plan: Patient is 74 years of age admitted with pneumonia due to [place] virus she is doing better oxygenation satisfactory renal function improving with IV fluids blood pressure is much better blood cultures are pending blood cultures are pending plan to discharge tomorrow O blood cultures are negative continue with steroids saturation satisfactory patient is mild right-sided hydronephrosis medial on subpleural lower lobe changes on the a CT scan no evidence of pulmonary embolism possible discharge tomorrow patient's pro calcitonin is negative may have an underlying UTI
[2020-05-16] MEDS ORDERED: Ringers Lactate 1,000 ML IV ONE (13:43)
[2020-05-16 14:24] VITALS: BMI 28.6
[2020-05-16] MEDS ORDERED: CALCIUM GLUCONATE 1 GM IVPB 1 GM/50 ML BAG IV ONE (15:24)
--- NOTE | 2020-05-16 17:52 | P.PN ---
Subjective Date of Service: 05/16/20 Primary Care Provider: none Chief Complaint: COVID pneumonia, hypoxia, hypotension Patient states she feels much better. Levophed drip has been discontinued. Her blood pressure has been stable. She is tolerating 2 L of oxygen by nasal cannula. Physical Examination - Vital Signs Temperature: 97.6 F Blood Pressure: 133/59 Pulse: 55 Respirations: 22 Pulse Ox (%): 92 - Physical Exam General: Alert, In no apparent distress Neck: JVD not distended Respiratory: Diminished Cardiovascular: Regular rate/rhythm Gastrointestinal: Soft and benign, Non-distended Musculoskeletal: No swelling Integumentary: No rashes Neurological: Other (No focal motor deficit.) - Studies Laboratory Data (last 24 hrs) 05/15/20 22:07: WBC 3.60 L, Hgb 10.8 L, Hct 31.6 L, Plt Count 145 L 05/15/20 19:24: Sodium 137, Potassium 3.4 L, BUN 22 H, Creatinine 1.43 H, Glucose 120 H, Total Bilirubin 0.7, AST 69 H, ALT 48, Alkaline Phosphatase 55 05/15/20 19:24: PT 12.2, INR 1.03, APTT 29.5 Assessment And Plan - Current Problems (Diagnosis) (1) COVID-19 Onset Date: ~05/08/20 Current Visit: Yes Status: Acute (2) Hypotension Onset Date: ~05/15/20 Current Visit: Yes Status: Acute Qualifiers: Hypotension type: hypotension due to hypovolemia Qualified Code(s): I95.89 - Other hypotension; E86.1 - Hypovolemia (3) Pneumonia due to COVID-19 virus Onset Date: ~05/15/20 Current Visit: Yes Status: Acute (4) UTI (urinary tract infection) Current Visit: Yes Status: Acute (5) Hypovolemic shock Current Visit: Yes Status: Acute - Plan Hypotension resolved. Continue IV Solu-Medrol Titrate oxygen. Vitamin-C and D supplementation. Monitor blood pressure closely. Downgraded to the medical floor. IV cefepime and vancomycin started for UTI. Follow cultures.
[2020-05-16] MEDS ORDERED: INFLUENZA VACCINE (for 3y+) 0.5 ML DOSE IMVAC ONE (20:00)
[2020-05-16] MEDS ORDERED: PNEUMOCOCCAL VACCINE 0.5 ML IMVAC ONE (20:00)
[2020-05-16] MEDS: MELATONIN 5 MG TABLET PO SCH (23:36)
[2020-05-16] MEDS ORDERED: MELATONIN 5 MG TABLET PO ONE (23:47)
[2020-05-17] MEDS: Ringers Lactate 1,000 ML IV SCH ×2 (03:30→14:27)
[2020-05-17] MEDS ORDERED: Ringers Lactate 1,000 ML IV ONE (03:45)
[2020-05-17 05:47] LABS: Albumin 2.2 g/dL (3.4-5.0); Magnesium 1.7 mg/dL (1.8-2.4); Phosphorus 3.1 mg/dL (2.5-4.9); Potassium 3.6 mmol/L (3.5-5.1)
[2020-05-17] MEDS ORDERED: KCL 20 MEQ/100 mL IVPB 20 MEQ/100 ML BAG IV SCH (07:00)
[2020-05-17] MEDS ORDERED: ZINC SULFATE 220 MG CAP ONE (08:45)
[2020-05-17] MEDS ORDERED: APIXABAN 5 MG TABLET ONE (08:45)
[2020-05-17] MEDS ORDERED: ASCORBIC ACID 500 MG TABLET ONE (08:45)
[2020-05-17] MEDS ORDERED: VITAMIN D 1000 UNIT TAB ONE (08:45)
[2020-05-17] MEDS ORDERED: FAMOTIDINE 20 MG/2 ML VIAL IV ONE (08:45)
[2020-05-17] MEDS ORDERED: METHYLPREDNISOLONE 40 MG INJ ONE (08:45)
[2020-05-17] MEDS ORDERED: KCL 20 MEQ/100 mL IVPB 20 MEQ/100 ML BAG IV ONE (08:46)
[2020-05-17] MEDS ORDERED: CEFEPIME/SWI 1gm 10 ML ONE (08:46)
[2020-05-17] MEDS: METHYLPREDNISOLONE 40 MG INJ IV SCH (08:47)
[2020-05-17] MEDS: VITAMIN D 5,000 UNIT CAP PO SCH (08:47)
[2020-05-17] MEDS: CEFEPIME/SWI 1gm 10 ML IV SCH ×2 (08:47→22:03)
[2020-05-17] MEDS: APIXABAN 5 MG TABLET PO SCH ×2 (08:47→22:05)
[2020-05-17] MEDS: ASCORBIC ACID 500 MG TABLET PO SCH ×4 (08:47→22:04)
[2020-05-17] MEDS: FAMOTIDINE 20 MG/2 ML VIAL IV SCH ×2 (08:47→22:04)
[2020-05-17] MEDS: ZINC SULFATE 220 MG CAP PO SCH (08:48)
[2020-05-17] MEDS ORDERED: VANCOMYCIN 1.25 GM in NA CHLORIDE 0.9% 250 ML IVPB SCH (09:00)
[2020-05-17] MEDS ORDERED: INFLUENZA VACCINE (for 3y+) 0.5 ML DOSE IMVAC ONE (09:00)
[2020-05-17] MEDS ORDERED: PNEUMOCOCCAL VACCINE 0.5 ML IMVAC ONE (09:00)
--- NOTE | 2020-05-17 13:41 | P.PN ---
Subjective Date of Service: 05/17/20 Primary Care Provider: none Chief Complaint: COVID pneumonia, hypoxia, hypotension Patient states she feels much better and wants to go home. Her blood pressure has been stable and she has been tolerating 3 L of oxygen by nasal cannula. Physical Examination - Vital Signs Temperature: 98.2 F Blood Pressure: 116/59 Pulse: 67 Respirations: 20 Pulse Ox (%): 94 - Physical Exam General: Alert, In no apparent distress HEENT: Mucous membr. moist/pink Neck: JVD not distended Respiratory: Clear to auscultation bilaterally Cardiovascular: Regular rate/rhythm, Normal S1 S2 Gastrointestinal: Soft and benign, Non-distended Musculoskeletal: No swelling Integumentary: No rashes Neurological: Normal strength at 5/5 x4 extr Assessment And Plan - Current Problems (Diagnosis) (1) COVID-19 Onset Date: ~05/08/20 Current Visit: Yes Status: Acute (2) Hypotension Onset Date: ~05/15/20 Current Visit: Yes Status: Acute Qualifiers: Hypotension type: hypotension due to hypovolemia Qualified Code(s): I95.89 - Other hypotension; E86.1 - Hypovolemia (3) Pneumonia due to COVID-19 virus Onset Date: ~05/15/20 Current Visit: Yes Status: Acute (4) UTI (urinary tract infection) Current Visit: Yes Status: Acute (5) Hypovolemic shock Current Visit: Yes Status: Acute (6) Acute renal failure Current Visit: Yes Status: Acute - Plan Hypotension resolved. Acute renal failure resolved. Nephrology input appreciated. Continue IV fluid. Continue IV Solu-Medrol Titrate oxygen. Vitamin-C and D supplementation. Monitor blood pressure closely. Urine culture is growing Gram negative rods. 1 blood culture bottle growing Gram positive Cocci. Continue IV Cefepime and vancomycin. Follow cultures Physician Review: Patient Assessed, Agree with Above Assessment and Plan Physician Review Additional Text: Hypovolemic shock. UTI. COVID 19 pneumonia. Start broad-spectrum IV antibiotics. IV steroid. Weaned off Levophed as tolerated. Follow cultures.
[2020-05-17] MEDS ORDERED: MAGNESIUM SULFATE 1 gm IVPB 1 GM/100 ML BAG IV ONE (18:51)
[2020-05-17] MEDS ORDERED: THIAMINE 200 MG/2 ML INJ IVP ONE (18:53)
[2020-05-17] MEDS ORDERED: IVERMECTIN 3 MG TABLET PO ONE (19:00)
--- NOTE | 2020-05-17 20:50 | PN ---
Date of Progress Note: 05/17/2020 Chief Complaint: Acute kidney injury secondary to prerenal azotemia, nonoliguric ATN, creatinine lev el was up to 1.4. History Of Present Illness: The patient has nonoliguric urine output. The patient has COVID pneumon ia. She presented to emergency room because of weakness and shortness of breath. She was found to h ave hypoxemic and hypotensive. Review of Systems: Denies complaints. The patient is lethargic and arousable. Physical Examination: Lungs: Normal respiratory effort. Heart: S1, S2. Abdomen: Benign. Extremities: No edema. Impression And Plan: 1.Acute kidney injury secondary to renal hypoperfusion. Continue IV fluids for volume resuscitation . The patient has volume depletion. 2.Mild hypokalemia. Potassium replacement was ordered. 3.COVID pneumonia. The patient is on steroids and on ivermectin. 4.Hypotension. The patient requires Levophed. Monitor thyroid panel and adjust cortisol level. 5.Prerenal azotemia. Adjust IV fluids and monitor fluid balance. EB/MODL Voice ID: [id number] Report ID: [id number]
[2020-05-17] MEDS: METHYLPREDNISOLONE 125 MG INJ IV SCH (22:04)
[2020-05-17] MEDS: MELATONIN 5 MG TABLET PO SCH (22:05)
[2020-05-17] MEDS: NACHLORIDE 0.45% 1,000 ML IV SCH ×2 (22:05→22:19)
[2020-05-18 05:17] LABS: Absolute Lymphocytes (CBC) 0.3 K/uL (0.7-4.9); Lymphocytes % 2.3 % (15.3-44.8); MPV 8.2 fL (7.6-11.3); RBC Red Blood Cell Count 4.86 M/uL (3.86-4.86)
[2020-05-18 05:57] LABS: Albumin 2.5 g/dL (3.4-5.0); Magnesium 1.9 mg/dL (1.8-2.4); Phosphorus 2.4 mg/dL (2.5-4.9); Potassium 3.4 mmol/L (3.5-5.1)
[2020-05-18 07:47] LABS: Blood Morphology Comment NOT SEEN (NOT SEEN); Platelet Estimate ADEQ
[2020-05-18] MEDS: CALCIUM CARBONATE 500 MG TAB PO SCH (08:32)
[2020-05-18] MEDS: METHYLPREDNISOLONE 125 MG INJ IV SCH ×2 (08:32→20:56)
[2020-05-18] MEDS: ZINC SULFATE 220 MG CAP PO SCH (08:32)
[2020-05-18] MEDS: VITAMIN D 5,000 UNIT CAP PO SCH (08:32)
[2020-05-18] MEDS: APIXABAN 5 MG TABLET PO SCH ×2 (08:32→20:56)
[2020-05-18] MEDS: ASCORBIC ACID 500 MG TABLET PO SCH ×4 (08:32→20:56)
[2020-05-18] MEDS: THIAMINE HCL 100 MG TABLET PO SCH (08:32)
[2020-05-18] MEDS: FAMOTIDINE 20 MG/2 ML VIAL IV SCH ×2 (08:32→20:56)
[2020-05-18] MEDS ORDERED: VANCOMYCIN 1.25 GM in NA CHLORIDE 0.9% 250 ML IVPB SCH ×4 (09:00)
[2020-05-18] MEDS: CEFEPIME/SWI 1gm 10 ML IV SCH (10:10)
--- NOTE | 2020-05-18 10:42 | P.PN ---
Subjective Date of Service: 05/18/20 Primary Care Provider: none Chief Complaint: COVID pneumonia, hypoxia, hypotension Subjective: Improving (Patient is improving no new complaints) Review of Systems General: Weakness Respiratory: Shortness of Breath Physical Examination - Vital Signs Temperature: 97.1 F Blood Pressure: 144/81 Pulse: 82 Respirations: 18 Pulse Ox (%): 97 Assessment & Plan - Problems (Diagnosis) (1) Pneumonia due to COVID-19 virus Onset Date: ~05/15/20 Current Visit: Yes Status: Acute Plan: Patient admitted respiratory failure from coronal virus oxygen requirements have been declining final signs stable patient's initial pro calcitonin was negative blood cultures the most likely contaminant urine culture shows E coli pansensitive change to work p.o. Augmentin Dc IV fluids plan to discharge possibly tomorrow on home oxygen Physician Review: Patient Assessed, Agree with Above Assessment and Plan
--- NOTE | 2020-05-18 14:20 | P.PN ---
Subjective Date of Service: 05/18/20 Primary Care Provider: none Chief Complaint: COVID pneumonia, hypoxia, hypotension Patient appeared confused today. Her oxygen was initially increased to 6L but not tolerating 4 L by nasal cannula. Urine culture is growing E. coli. Physical Examination - Vital Signs Temperature: 98.4 F Blood Pressure: 147/65 Pulse: 76 Respirations: 26 Pulse Ox (%): 91 - Physical Exam General: In no apparent distress, Confused Cardiovascular: No edema, Regular rate/rhythm, Normal S1 S2 Gastrointestinal: Soft and benign, Non-distended Musculoskeletal: No swelling Integumentary: No rashes Neurological: Normal strength at 5/5 x4 extr, Other (Confused) Assessment And Plan - Current Problems (Diagnosis) (1) COVID-19 Onset Date: ~05/08/20 Current Visit: Yes Status: Acute (2) Hypotension Onset Date: ~05/15/20 Current Visit: Yes Status: Acute Qualifiers: Hypotension type: hypotension due to hypovolemia Qualified Code(s): I95.89 - Other hypotension; E86.1 - Hypovolemia (3) Pneumonia due to COVID-19 virus Onset Date: ~05/15/20 Current Visit: Yes Status: Acute (4) UTI (urinary tract infection) Current Visit: Yes Status: Acute (5) Hypovolemic shock Current Visit: Yes Status: Acute (6) Acute renal failure Current Visit: Yes Status: Acute - Plan Hypotension resolved. Acute renal failure resolved. Patient seen by nephrology. Nursing staff report she is eating well. IV fluid discontinued Continue IV Solu-Medrol Titrate oxygen. Vitamin-C and D supplementation. Monitor blood pressure closely. Urine culture is growing E. coli. 1 blood culture bottle growing Gram positive Cocci. Continue IV Cefepime and vancomycin. Follow repeat blood culture result. Physician Review: Patient Assessed, Agree with Above Assessment and Plan
[2020-05-18] MEDS ORDERED: WATER FOR INJ,STERILE 10 ML IM PRN (15:23)
[2020-05-18] MEDS ORDERED: WATER FOR INJ,STERILE 10 ML ONE (15:46)
[2020-05-18] MEDS ORDERED: ZIPRASIDONE MESYLA 20 MG/VIAL IM ONE (16:00)
[2020-05-18] MEDS: AMOX/K CLAV 875 MG TAB PO SCH (20:55)
[2020-05-18] MEDS: MELATONIN 5 MG TABLET PO SCH (20:56)
[2020-05-18] MEDS ORDERED: POTASSIUM 25 MEQ EFFERV TAB PO ONE (21:00)
[2020-05-19] MEDS ORDERED: LORazepam 2 MG/ML VIAL IV ONE (00:16)
--- NOTE | 2020-05-19 00:27 | PN ---
Date of Progress Note: 05/18/2020 Chief Complaint: Acute kidney injury secondary to prerenal azotemia, nonoliguric acute tubular necro sis. Creatinine level was up to 1.4. History Of Present Illness: The patient has nonoliguric urine output. The patient has COVID pneumon ia who presented to emergency room because of shortness of breath. She was found to have hypoxemic r espiratory failure and hypotension. Review of Systems: The patient is lethargic, cannot provide review of systems. Physical Examination: Lungs: Normal respiratory effort. Heart: S1, S2. Extremities: No edema. Impression And Plan: 1.Acute kidney injury, secondary to renal hypoperfusion. Continue IV fluids for volume resuscitatio n to prevent hypotension. The patient has mild volume depletion. Continue IV fluids as needed. Adv ance p.o. intake as tolerated. 2.Mild hypokalemia. Potassium level replaced. 3.COVID pneumonia per primary team. 4.Hypotension. The patient required Levophed. Currently, she is hemodynamically stable. Monitor b lood pressure and avoid blood pressure medication if systolic blood pressure is below 110. 5.Prerenal azotemia. IV fluids started to treat hypovolemia. EB/MODL Voice ID: [id number] Report ID: [id number]
[2020-05-19] MEDS ORDERED: LORazepam 2 MG/ML VIAL ONE (00:37)
[2020-05-19] MEDS ORDERED: HALOPERIDOL LACT 5 MG/ML INJ IV PRN (01:38)
[2020-05-19] MEDS ORDERED: WATER FOR INJ,STERILE 10 ML IM PRN ×2 (02:17→06:12)
[2020-05-19] MEDS ORDERED: ZIPRASIDONE MESYLA 20 MG/VIAL IM ONE ×3 (02:17→06:12)
[2020-05-19] MEDS ORDERED: WATER FOR INJ,STERILE 10 ML ONE (02:34)
[2020-05-19 04:17] LABS: Albumin 2.6 g/dL (3.4-5.0); Magnesium 1.9 mg/dL (1.8-2.4); Phosphorus 2.2 mg/dL (2.5-4.9); Potassium 3.3 mmol/L (3.5-5.1)
[2020-05-19] MEDS ORDERED: POTASSIUM 25 MEQ EFFERV TAB PO ONE (07:04)
[2020-05-19] MEDS: AMOX/K CLAV 875 MG TAB PO SCH ×2 (07:55→09:00)
[2020-05-19] MEDS: ZINC SULFATE 220 MG CAP PO SCH (07:56)
[2020-05-19] MEDS: VITAMIN D 5,000 UNIT CAP PO SCH (07:56)
[2020-05-19] MEDS: THIAMINE HCL 100 MG TABLET PO SCH (07:56)
[2020-05-19] MEDS: METHYLPREDNISOLONE 125 MG INJ IV SCH ×2 (07:56→21:53)
[2020-05-19] MEDS: ASCORBIC ACID 500 MG TABLET PO SCH ×5 (07:56→21:54)
[2020-05-19] MEDS: APIXABAN 5 MG TABLET PO SCH (07:56)
[2020-05-19] MEDS: CALCIUM CARBONATE 500 MG TAB PO SCH (07:57)
[2020-05-19] MEDS: FAMOTIDINE 20 MG/2 ML VIAL IV SCH ×2 (07:57→21:53)
[2020-05-19] MEDS ORDERED: CEFTRIAXONE 1 GM/NS 50 ML 1 GM/50 ML BAG IV SCH (09:00)
--- NOTE | 2020-05-19 10:19 | RAD REPORT ---
EXAM DESCRIPTION: Xavier Single View2 10:03 am CLINICAL HISTORY: Chest pain COMPARISON: May 15, 2020 FINDINGS: Overall minimal improvement in the bilateral pulmonary opacities. Heart is normal size IMPRESSION: Minimal improvement in the bilateral pneumonia
--- NOTE | 2020-05-19 12:59 | P.PN ---
Subjective Date of Service: 05/19/20 Primary Care Provider: none Chief Complaint: Respiratory failure altered mental status Patient is confused agitated hypoxic condition seems to be worse Review of Systems is unable to be obtained Physical Examination - Vital Signs Temperature: 97.1 F Blood Pressure: 150/90 Pulse: 72 Respirations: 24 Pulse Ox (%): 89 - Physical Exam General: Unresponsive Respiratory: Clear to auscultation bilaterally Cardiovascular: No edema, Normal S1 S2 - Studies Microbiology Data (last 24 hrs): 05/15/20 22:07 Blood - Blood Aerobic Blood Culture - Final Enterococcus Faecalis 05/15/20 22:07 Blood - Blood Blood Culture Gram Stain - Final 05/15/20 22:07 Blood - Blood Anaerobic Blood Culture - Final Enterococcus Faecalis 05/15/20 22:07 Blood - Blood Gram Stain - Final Assessment & Plan - Problems (Diagnosis) (1) Pneumonia due to COVID-19 virus Onset Date: ~05/15/20 Current Visit: Yes Status: Acute Plan: P respiratory failure from [place] virus chest x-ray no change change to IV Rocephin patient required sedation yesterday blood pressure is elevated change to high-flow nasal cannula oxygen white count is elevated patient is not eating and drinking change to Lovenox need to check labs none ordered continue with steroid Physician Review: Patient Assessed, Agree with Above Assessment and Plan
[2020-05-19] MEDS ORDERED: CEFTRIAXONE/SWI 1gm 1 GM/10 ML SYR IV SCH (13:00)
--- NOTE | 2020-05-19 16:33 | P.PN ---
Subjective Date of Service: 05/19/20 Primary Care Provider: none Chief Complaint: Respiratory failure altered mental status Patient was very confused and agitated throughout the night. She was given multiple doses of Geodon and Ativan. He was requiring 6 L of oxygen by nasal cannula. Physical Examination - Vital Signs Temperature: 97.1 F Blood Pressure: 155/80 Pulse: 72 Respirations: 24 Pulse Ox (%): 89 - Physical Exam General: Confused Neck: JVD not distended Respiratory: Crackles/rales Cardiovascular: No edema, Regular rate/rhythm, Normal S1 S2 Gastrointestinal: Soft and benign, Non-distended Musculoskeletal: No swelling Integumentary: No rashes Neurological: Other (Confused, nonfocal.) - Studies Microbiology Data (last 24 hrs): 05/15/20 22:07 Blood - Blood Aerobic Blood Culture - Final Enterococcus Faecalis 05/15/20 22:07 Blood - Blood Blood Culture Gram Stain - Final 05/15/20 22:07 Blood - Blood Anaerobic Blood Culture - Final Enterococcus Faecalis 05/15/20 22:07 Blood - Blood Gram Stain - Final Assessment And Plan - Current Problems (Diagnosis) (1) COVID-19 Onset Date: ~05/08/20 Current Visit: Yes Status: Acute (2) Hypotension Onset Date: ~05/15/20 Current Visit: Yes Status: Acute Qualifiers: Hypotension type: hypotension due to hypovolemia Qualified Code(s): I95.89 - Other hypotension; E86.1 - Hypovolemia (3) Pneumonia due to COVID-19 virus Onset Date: ~05/15/20 Current Visit: Yes Status: Acute (4) UTI (urinary tract infection) Current Visit: Yes Status: Acute (5) Hypovolemic shock Current Visit: Yes Status: Acute (6) Acute renal failure Current Visit: Yes Status: Acute (7) Metabolic encephalopathy Current Visit: Yes Status: Acute (8) Agitation Current Visit: Yes Status: Acute - Plan Hypotension resolved. Acute renal failure resolved. Patient seen by nephrology. IV fluid discontinued Continue IV Solu-Medrol Geodon and Ativan p.r.n for agitation. Blood culture grew enterococcus faecalis. Urine culture: E. coli. Repeat blood culture: No growth to date. Feeding as tolerated. Titrate oxygen. Vitamin-C and D supplementation. IV Levaquin to cover enterococcus and E. coli. Physician Review: Patient Assessed, Agree with Above Assessment and Plan
[2020-05-19] MEDS ORDERED: Levofloxacin500mg IV 500 MG/100 ML BAG IV SCH (17:00)
[2020-05-19] MEDS: ZIPRASIDONE MESYLA 20 MG/VIAL IM ONE (18:03)
[2020-05-19] MEDS: ZIPRASIDONE MESYLA 20 MG/VIAL IM PRN (18:17)
[2020-05-19] MEDS: MELATONIN 5 MG TABLET PO SCH ×2 (21:00→21:54)
[2020-05-19] MEDS: ENOXAPARIN 60 MG/0.6 ML SQ SCH (21:53)
[2020-05-19] MEDS: CEFTRIAXONE/SWI 1gm 1 GM/10 ML SYR IVP SCH (21:53)
--- NOTE | 2020-05-19 22:26 | PN ---
Date of Progress Note: 05/19/2020 Chief Complaint: Acute kidney injury secondary to prerenal azotemia, nonoliguric acute tubular necro sis, creatinine level was elevated up to 1.4. History Of Present Illness: The patient has nonoliguric urine output. The patient has COVID pneumon ia. She presented to the hospital because of shortness of breath. She was found to have hypoxemic r espiratory failure and hypotension. Review of Systems: The patient cannot provide review of systems. Physical Examination: Lungs: Normal respiratory effort. Heart: S1, S2. Extremities: No edema. Impression And Plan: 1.Acute kidney injury secondary to volume depletion and renal hypoperfusion. Continue IV fluids for volume resuscitation. Monitor blood pressure and plan midodrine for blood pressure support. 2.Mild hypokalemia. Potassium level replaced. Monitor magnesium level. 3.COVID pneumonia per primary team.. 4.Hypotension. The patient required Levophed. Currently, blood pressure improved. The patient is transferred from ICU to telemetry floor. Monitor blood pressure and avoid blood pressure medication if systolic blood pressure is below 110. 5.Prerenal azotemia. Continue IV fluids. EB/MODL Voice ID: [id number] Report ID: [id number]
[2020-05-20] MEDS: ZIPRASIDONE MESYLA 20 MG/VIAL IM PRN ×3 (03:15→22:05)
[2020-05-20] MEDS: WATER FOR INJ,STERILE 10 ML IM PRN ×2 (03:15→22:06)
[2020-05-20] MEDS: FENTANYL CITR 100 MCG/2 ML IV ONE ×2 (03:25→13:37)
[2020-05-20 03:57] LABS: Absolute Lymphocytes (CBC) 0.2 K/uL (0.7-4.9); Hematocrit 40.3 % (36.0-45.0); Lymphocytes % 1.8 % (15.3-44.8); MPV 8.2 fL (7.6-11.3); RBC Red Blood Cell Count 4.82 M/uL (3.86-4.86)
[2020-05-20 04:12] LABS: Albumin 2.7 g/dL (3.4-5.0); C-Reactive Protein 9.63 mg/L (<3.00); Ferritin 1049.7 ng/mL (8-388); Magnesium 2.1 mg/dL (1.8-2.4); Phosphorus 2.6 mg/dL (2.5-4.9); Potassium 3.1 mmol/L (3.5-5.1)
[2020-05-20] MEDS ORDERED: POTASSIUM 25 MEQ EFFERV TAB PO ONE (08:00)
--- NOTE | 2020-05-20 08:38 | P.PN ---
Subjective Date of Service: 05/20/20 Primary Care Provider: none Chief Complaint: Respiratory failure altered mental status Patient continues to be agitated very difficult to control still hypoxic Review of Systems is unable to be obtained Physical Examination - Vital Signs Temperature: 97.6 F Blood Pressure: 140/95 Pulse: 97 Respirations: 20 Pulse Ox (%): 88 - Physical Exam General: Unresponsive Respiratory: Clear to auscultation bilaterally - Studies Microbiology Data (last 24 hrs): 05/15/20 22:07 Blood - Blood Aerobic Blood Culture - Final Enterococcus Faecalis 05/15/20 22:07 Blood - Blood Blood Culture Gram Stain - Final 05/15/20 22:07 Blood - Blood Anaerobic Blood Culture - Final Enterococcus Faecalis 05/15/20 22:07 Blood - Blood Gram Stain - Final Assessment & Plan - Problems (Diagnosis) (1) Pneumonia due to COVID-19 virus Onset Date: ~05/15/20 Current Visit: Yes Status: Acute Plan: Patient has delirium very agitated still hypoxic ferritin levels elevated add some IV fluids change to IV thiamine white count is declining continue with IV antibiotic Dc Pepcid reduce dose of Solu-Medrol on 6 L she is 88% basically she has ripping off all the equipment Physician Review: Patient Assessed, Agree with Above Assessment and Plan
[2020-05-20] MEDS: POTASS/SODIUM PHOSPHATE 1 PKT POWD.PACK PO SCH (09:00)
[2020-05-20] MEDS ORDERED: D5 0.45 NS 1,000 ML IV SCH (09:00)
[2020-05-20] MEDS: ZINC SULFATE 220 MG CAP PO SCH (09:00)
[2020-05-20] MEDS: ASCORBIC ACID 500 MG TABLET PO SCH ×4 (09:00→21:00)
[2020-05-20] MEDS: VITAMIN D 5,000 UNIT CAP PO SCH (09:00)
[2020-05-20] MEDS: CALCIUM CARBONATE 500 MG TAB PO SCH (09:00)
[2020-05-20] MEDS: CEFTRIAXONE/SWI 1gm 1 GM/10 ML SYR IVP SCH (10:36)
[2020-05-20] MEDS: ENOXAPARIN 60 MG/0.6 ML SQ SCH ×2 (10:36→22:03)
[2020-05-20] MEDS: THIAMINE 200 MG/2 ML INJ IVP SCH ×2 (11:00→22:04)
[2020-05-20] MEDS: METHYLPREDNISOLONE 40 MG INJ IV SCH ×2 (11:00→22:07)
--- NOTE | 2020-05-20 12:27 | PN ---
Date of Progress Note: 05/20/2020 Subjective: The patient was admitted with COVID pneumonia, altered mental status, and acute kidney injury. The kidney function has been improved. Objective: Vital Signs: When I saw the patient blood pressure 140/95, pulse of 97, afebrile. General: The patient is confused. Chest: Faint rales in the base. Heart: S1 and S2. Systolic murmur. Abdomen: Soft, nontender. Extremities: No edema. Neuro: The patient confused. No focality. Laboratory Data: WBC 11, H and H 13.7/40.3. Sodium 146, potassium 3.1, bicarb 32, BUN 17, creatinine 0.6, calcium 8.4, phosphorus 2.6, magnesium 2.1, ferritin 1000. Assessment/plan: 1. Acute kidney injury secondary to prerenal, recovered, resolved. 2. Currently, patient has normal volume with the presence of marginal hyponatremia. I am going to start the patient on D5. 3. Hypokalemia. We will supplement. 4. COVID pneumonia as by Pulmonary and Primary. 5. Deconditioning. Continue PT, OT. time spend discussing with the patient face to face , placing order , discusse with the patient and other [employer] pilot including hospitalist 45 min. BRYANNA/ARTIE Voice ID: [id number] Report ID: [id number] [place]
[2020-05-20] MEDS: D5W 1,000 ML with POTASSIUM CL 20 MEQ IV SCH ×2 (12:36)
[2020-05-20] MEDS: POTASSIUM CL 40 MEQ in NA CHLORIDE 0.9% 500 ML IV SCH ×2 (12:38→16:00)
[2020-05-20] MEDS ORDERED: HALOPERIDOL LACT 5 MG/ML INJ IV STA (15:30)
[2020-05-20] MEDS: MELATONIN 5 MG TABLET PO SCH (21:00)
--- NOTE | 2020-05-20 21:28 | P.PN ---
Subjective Date of Service: 05/20/20 Primary Care Provider: none Chief Complaint: Respiratory failure altered mental status Subjective: No new changes (remains confused, agitated overnight, multiple doses of geodon yesterday/last night, ran out of haldol) Review of Systems is unable to be obtained Physical Examination - Vital Signs Temperature: 97.0 F Blood Pressure: 184/80 Pulse: 108 Respirations: 20 Pulse Ox (%): 97 - Studies Microbiology Data (last 24 hrs): 05/15/20 19:24 Blood - Blood Aerobic Blood Culture - Final No growth in 5 days. 05/15/20 19:24 Blood - Blood Anaerobic Blood Culture - Final No growth in 5 days. Assessment & Plan Physician Review Additional Text: Physical Exam: Gen: Confused, agitated at times HEENT: openes eyes to verbal stimulation at times CV: RRR, no edema Pulm: b/l crackles, on 6 L NC Abd: soft, non-distended Ext: no rash Neuro: moves all 4 extremities, 5/5 strength. nonfocal Problem List: Acute hypoxemic respiratory failure secondary to COVID-19 Pneumonia Sepsis with Septic Shock on admission due to UTI / bacteremia, resolved UTI, cystitis Acute renal failure Acute Metabolic encephalopathy secondary to infection / septic shock Agitation sepsis / septic shock resolved UTI & bacteremia - continue Rocephin for now, sensitivities reviewed. only half blood culture bottles were positive repeat blood culture: no growth continues with agitation / delirium / metabolic encephalopathy - slight improvement temporarily today. Son states patient's baseline is high- functioning, "takes care of everything" between herself and her . Geodon PRN for agitation. Nursing report ativan may have made things worse the other night. Haldol if restocked refusing oral medications at this time wean O2 as tolerated, patient pulling at nasal cannula, needs 1:1 sitter, sedation PRN exam nonfocal, consider CT brain if no improvement Dispo: anticipate dc home once encephalopathy resolves and O2 requirement < 4L Time Spent Managing Pts Care (In Minutes): 40
[2020-05-21 03:52] LABS: Hematocrit 41.2 % (36.0-45.0); MPV 7.8 fL (7.6-11.3)
[2020-05-21 04:39] LABS: Albumin 2.7 g/dL (3.4-5.0); Bilirubin Direct 0.3 mg/dL (0-0.2); C-Reactive Protein 6.38 mg/L (<3.00); Ferritin 974.9 ng/mL (8-388); Magnesium 2.3 mg/dL (1.8-2.4); Phosphorus 2.8 mg/dL (2.5-4.9); Potassium 3.6 mmol/L (3.5-5.1); Protein, Total 6.3 g/dL (6.4-8.2)
[2020-05-21] MEDS: WATER FOR INJ,STERILE 10 ML IM PRN ×2 (05:12→21:10)
[2020-05-21] MEDS: ZIPRASIDONE MESYLA 20 MG/VIAL IM PRN ×2 (05:12→21:09)
--- NOTE | 2020-05-21 08:55 | RAD REPORT ---
EXAM DESCRIPTION: RAD - Chest Single View - 05/21/2020 6:44 am CLINICAL HISTORY: SOB, COVID Chest pain. COMPARISON: Chest Single View dated 05/19/2020; Chest Single View dated 05/15/2020 FINDINGS: Portable technique limits examination quality. Moderate bilateral pulmonary opacities are seen, moderately worse since comparative study. The heart is mildly prominent size with a tortuous thoracic aorta. No displaced fractures. IMPRESSION: Moderate worsening in bilateral lung aeration since comparative study.
[2020-05-21] MEDS: ZINC SULFATE 220 MG CAP PO SCH (09:00)
[2020-05-21] MEDS: ASCORBIC ACID 500 MG TABLET PO SCH ×4 (09:00→21:00)
[2020-05-21] MEDS: VITAMIN D 5,000 UNIT CAP PO SCH (09:00)
[2020-05-21] MEDS: CALCIUM CARBONATE 500 MG TAB PO SCH (09:00)
[2020-05-21] MEDS: POTASS/SODIUM PHOSPHATE 1 PKT POWD.PACK PO SCH (09:00)
[2020-05-21] MEDS: ENOXAPARIN 60 MG/0.6 ML SQ SCH ×2 (10:08→21:09)
[2020-05-21] MEDS: CEFTRIAXONE/SWI 1gm 1 GM/10 ML SYR IVP SCH (10:08)
[2020-05-21] MEDS: D5W 1,000 ML with POTASSIUM CL 20 MEQ IV SCH ×6 (10:08→21:35)
[2020-05-21] MEDS: METHYLPREDNISOLONE 40 MG INJ IV SCH ×2 (10:09→21:09)
--- NOTE | 2020-05-21 11:54 | P.PN ---
Subjective Date of Service: 05/21/20 Primary Care Provider: none Chief Complaint: Respiratory failure altered mental status Subjective: No new changes (remains confused, slightly more calm /less agitated this morning. Allowing staff to place mask closer to face. more alert, but unable to have effective / meaningful communication) Review of Systems is unable to be obtained Physical Examination - Vital Signs Temperature: 97.1 F Blood Pressure: 160/93 Pulse: 103 Respirations: 19 Pulse Ox (%): 95 - Studies Microbiology Data (last 24 hrs): 05/15/20 19:24 Blood - Blood Aerobic Blood Culture - Final No growth in 5 days. 05/15/20 19:24 Blood - Blood Anaerobic Blood Culture - Final No growth in 5 days. Assessment & Plan Physician Review Additional Text: Physical Exam: Gen: Confused, opens eyes to voice, attempts to answer but incoherent / mumbling HEENT: sclera anicteric CV: sinus tachycardia 90-100, no edema Pulm: b/l crackles, on nonrebreather Abd: soft, non-distended, does not seem to have tenderness Ext: no rash Neuro: moves all 4 extremities, 5/5 strength. nonfocal Problem List: Acute hypoxemic respiratory failure secondary to COVID-19 Pneumonia Sepsis with Septic Shock on admission due to UTI / bacteremia, resolved UTI, cystitis Acute renal failure Acute Metabolic encephalopathy secondary to infection / septic shock Agitation sepsis / septic shock resolved UTI & bacteremia - continue Rocephin for now, sensitivities reviewed. only half blood culture bottles were positive repeat blood culture: no growth continues with agitation / delirium / metabolic encephalopathy, slightly improved today Son states patient's baseline is high-functioning, "takes care of everything" between herself and her . Carolin PRN for agitation. Nursing report ativan may have made things worse the other night. Haldol if restocked refusing oral medications at this time wean O2 as tolerated, patient pulling at NC/mask, needs 1:1 sitter, sedation PRN CXR today with interval worsening of bilateral opacities, ferritin remains elevated Pulm consulted, appreciate assistance acute renal failure / hypernatremia - nephrology consulted, on D5 if encephalopathy persists, will need to consider dobhoff placement for enteral feeds. Dispo: anticipate dc home once encephalopathy resolves and O2 requirement < 4L Time Spent Managing Pts Care (In Minutes): 40
[2020-05-21] MEDS: ZIPRASIDONE MESYLA 20 MG/VIAL IM ONE (13:51)
[2020-05-21] MEDS: THIAMINE 200 MG/2 ML INJ IVP SCH ×2 (13:54→21:09)
[2020-05-21] MEDS ORDERED: MIDAZOLAM HCL 2 MG/2 ML INJ IV PRN (16:19)
[2020-05-21 17:53] LABS: Arterial Blood Carboxyhemoglob 0.8 % (0-1.5); Blood Gas Oxyhemoglobin 92.5 % (94-97); Blood O2 Saturation 94.2 % (92-98.5)
[2020-05-21] MEDS: MELATONIN 5 MG TABLET PO SCH (21:00)
[2020-05-21] MEDS: HYDRALAZINE HCL 20 MG/ML VIAL IV PRN (21:10)
[2020-05-22] MEDS: Levofloxacin500mg IV 500 MG/100 ML BAG IV SCH ×2 (01:58→21:09)
--- NOTE | 2020-05-22 02:11 | PN ---
Date of Progress Note: 05/21/2020 Subjective: The patient was admitted with COVID pneumonia. The patient had altered mental status. Objective: Vital Signs: When I saw the patient, blood pressure of 160/93, pulse of 100, afebrile. The patient had good urine output of 1400. Chest: Faint rales on the left base. Heart: S1, S2. Regular. Systolic murmur. Abdomen: Soft, nontender. Extremities: Trace edema. Neuro: Confused. Moving 4 extremities. No focality. Laboratory Data: WBC 11.1, H and H 13.7/41.2. Sodium 148, potassium 3.6, bicarb 31, BUN of 21, creatinine 0.8, calcium 8.2, phosphorus 2.8, magnesium 2.3, ferritin 974, trending down. Current Medications: The patient on include, 1. Ceftriaxone. 2. Lovenox. 3. Calcium carbonate. 4. Haloperidol. 5. Tylenol. 6. Midazolam. 7. Zinc sulfate. 8. Solu-Medrol. 9. Melatonin. 10. D5 with half-normal at 75 per hour. 11. Potassium phosphate. Assessment And Plan: 1. Acute kidney injury secondary to prerenal/COVID nephropathy, recovered, resolved. 2. Hypertension, not controlled. I am going to start the patient on amlodipine 10 mg and we will follow up. 3. COVID pneumonia. Continue current treatment. 4. Hypokalemia, hypophosphatemia. We will continue supplement. 5. Altered mental status, possible encephalopathy metabolic secondary to urinary tract infection. Continue current antibiotic. We will follow up. 6. Bacteremia secondary to Enterococcus faecalis, resistant to quinolones, to cephalosporin with urinary tract infection. I will start the patient on Levaquin and we will follow up the patient. 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 CHRISTIANO Voice ID: [id number] Report ID: [id number] MTDJeison
[2020-05-22 04:23] LABS: MPV 8.7 fL (7.6-11.3); RBC Red Blood Cell Count 5.28 M/uL (3.86-4.86)
[2020-05-22 04:32] LABS: C-Reactive Protein 4.8 mg/L (<3.00); Ferritin 1013.3 ng/mL (8-388); Magnesium 1.9 mg/dL (1.8-2.4); Potassium 3.7 mmol/L (3.5-5.1)
[2020-05-22] MEDS ORDERED: D50W 25 GM/50 ML SYRINGE IV PRN (06:12)
[2020-05-22] MEDS ORDERED: GLUCAGON 1 MG/VIAL IM PRN (06:12)
[2020-05-22] MEDS: INSULIN -REGULAR HUMAN 50 UNIT/0.5 ML ML SQ SCH ×4 (07:30→19:56)
[2020-05-22] MEDS: POTASS/SODIUM PHOSPHATE 1 PKT POWD.PACK PO SCH ×2 (09:00→09:46)
[2020-05-22] MEDS: ZINC SULFATE 220 MG CAP PO SCH ×2 (09:00→09:47)
[2020-05-22] MEDS: ASCORBIC ACID 500 MG TABLET PO SCH ×5 (09:00→19:54)
[2020-05-22] MEDS: AMLODIPINE 10 MG TAB PO SCH ×2 (09:00→09:47)
[2020-05-22] MEDS ORDERED: POTASSIUM CL SA 10 MEQ TAB PO ONE (09:00)
[2020-05-22] MEDS: CALCIUM CARBONATE 500 MG TAB PO SCH ×2 (09:00→09:47)
[2020-05-22] MEDS: ENOXAPARIN 60 MG/0.6 ML SQ SCH (09:46)
[2020-05-22] MEDS: VITAMIN D 5,000 UNIT CAP PO SCH (09:46)
[2020-05-22] MEDS: METHYLPREDNISOLONE 40 MG INJ IV SCH ×2 (09:46→19:53)
[2020-05-22] MEDS: THIAMINE 200 MG/2 ML INJ IVP SCH ×2 (09:47→19:53)
[2020-05-22] MEDS: D5W 1,000 ML with POTASSIUM CL 20 MEQ IV SCH ×6 (10:52→19:55)
--- NOTE | 2020-05-22 11:20 | PN ---
Date of Progress Note: 05/22/2020 Subjective: The patient was admitted with acute kidney injury secondary to COVID pneumonia. The patient is still confused. Physical Examination: Vital Signs: Blood pressure 142/68, pulse of 99. Chest: Clear to auscultation. Heart: S1, S2. Regular. Abdomen: Soft, nontender. Extremities: No edema. Neuro: Moving 4 extremities. Confused, obtunded. Laboratory Data: WBC 15.4, H and H 14.4/45. Sodium 142, potassium 3.7, bicarb 30, BUN 14, creatinine 0.8, calcium 8.3. Ferritin 1013. Current Medications: The patient on include: 1. Levaquin. 2. Lovenox. 3. Calcium carbonate. 4. Amlodipine 10 mg. 5. Tylenol. 6. Zinc sulfate. 7. Solu-Medrol. 8. D5 half at 75 per hour. 9. Potassium supplement. 10. Thiamin. 11. Cholecalciferol. Assessment And Plan: 1. Acute kidney injury secondary to COVID pneumonia, prerenal, recovered, resolved. I going to continue current hydration as the patient has poor intake. 2. Hypertension, controlled, optimal. 3. Urinary tract infection with Escherichia coli. The patient on Levaquin. We will continue. 4. Bacteremia secondary to Enterococcal faecalis. Also, the patient on Levaquin. We will continue. 5. Hypokalemia. We will supplement. 6. Altered mental status. As by hospitalist. The patient is undergoing EEG currently. time spent exam the patient face to face , place order , discussed with the nursing staff, discussing the case with other steamfitter and application packaging consultant including hospitalist 45 min. CHRISTIANO Voice ID: [id number] Report ID: [id number] [facility]OSPITALJeison
--- NOTE | 2020-05-22 12:39 | P.PN ---
Subjective Date of Service: 05/22/20 Primary Care Provider: none Chief Complaint: Respiratory failure altered mental status Subjective: Improving (More awake/alert this morning, nonverbal at this time, it seems to be understanding more / listening with purpose. did not sleep overnight) Review of Systems 10-point ROS is otherwise unremarkable Physical Examination - Vital Signs Temperature: 97.6 F Blood Pressure: 163/87 Pulse: 108 Respirations: 28 Pulse Ox (%): 96 Assessment & Plan Physician Review Additional Text: Physical Exam: Gen: Confused, opens eyes to voice, seems to be listening with purpose, trying to get out of gown HEENT: sclera anicteric CV: sinus tachycardia 90-100, no edema Pulm: b/l crackles, on nonrebreather, slight tachypnea Abd: soft, non-distended, initially winced on palpation, however seemed comfortable when i continued to palpate abdomen Ext: no rash Neuro: moves all 4 extremities, 5/5 strength. nonfocal Problem List: Acute hypoxemic respiratory failure secondary to COVID-19 Pneumonia Sepsis with Septic Shock on admission due to UTI / bacteremia, resolved UTI, cystitis - E. coli Enterococcus bacteremia Acute renal failure Acute Metabolic encephalopathy secondary to infection / septic shock Agitation sepsis / septic shock resolved UTI & bacteremia - sensitivities reviewed and switch to Levaquin on 05/21, was previously on Rocephin. Enterococcus resistant to cephalosporins repeat blood culture: no growth Unclear etiology of enterococcus bacteremia, half of blood cultures were positive, urine did not grow enterococcus, too usntable for CT abd at this time Will obtain echocardiogram to evaluate for vegetation continues with agitation / delirium / metabolic encephalopathy, improving Son states patient's baseline is high-functioning, "takes care of everything" between herself and her . refusing oral medications at this time, it has not had any enteral nutrition wean O2 as tolerated, patient pulling at NC/mask, needs 1:1 sitter, sedation PRN Ferritin remains elevated, still requiring high levels of oxygen Pulm consulted, appreciate assistance acute renal failure / hypernatremia - nephrology consulted, improving on D5 if encephalopathy persists, will need to consider dobhoff placement for enteral feeds. Dispo: anticipate dc home once encephalopathy resolves and O2 requirement < 4L Time Spent Managing Pts Care (In Minutes): 40
[2020-05-22] MEDS ORDERED: Pharmacy Consult 1 EA XX PRN (13:00)
--- NOTE | 2020-05-22 13:03 | P.PN ---
Subjective Date of Service: 05/22/20 Primary Care Provider: none Chief Complaint: Respiratory failure altered mental status Patient is more alert today Enterococcus isolated in the blood Review of Systems is unable to be obtained Physical Examination - Vital Signs Temperature: 97.6 F Blood Pressure: 163/87 Pulse: 108 Respirations: 28 Pulse Ox (%): 96 Assessment & Plan - Problems (Diagnosis) (1) Pneumonia due to COVID-19 virus Onset Date: ~05/15/20 Current Visit: Yes Status: Acute Plan: Patient is improving bacteremia of off E coli Enterococcus presume urinary tract origin change to vancomycin and Rocephin for better coverage of Enterococcus delirium has declined consider tube feeding Dc melatonin and be contributing to the delirium blood pressure elevated patient is still requiring high concentrations of oxygen chest x-ray consistent with [place] virus pneumonia Physician Review: Patient Assessed, Agree with Above Assessment and Plan
--- NOTE | 2020-05-22 15:08 | RAD REPORT ---
EXAM DESCRIPTION: RAD - Abdomen 1 View (KUB) - 05/22/2020 2:59 pm CLINICAL HISTORY: dobhoff Pain COMPARISON: No comparisons FINDINGS: Tip of the enteric tube is in the distal stomach.
[2020-05-22] MEDS: VANCOMYCIN 1.25 GM in NA CHLORIDE 0.9% 250 ML IVPB SCH (16:08)
[2020-05-22] MEDS: ENOXAPARIN 80 MG/0.8 ML SQ SCH (19:53)
[2020-05-22] MEDS: ENSURE ENLIVE 237 ML CAN PO SCH (19:56)
[2020-05-22] MEDS: HYDRALAZINE HCL 20 MG/ML VIAL IV PRN (19:59)
[2020-05-22] MEDS ORDERED: HALOPERIDOL LACT 5 MG/ML INJ ONE (20:45)
[2020-05-23] MEDS ORDERED: HALOPERIDOL LACT 5 MG/ML INJ IV ONE (03:10)
[2020-05-23] MEDS: D5W 1,000 ML with POTASSIUM CL 20 MEQ IV SCH ×2 (04:48)
[2020-05-23 05:23] LABS: Hematocrit 43.9 % (36.0-45.0); MPV 8.3 fL (7.6-11.3); RBC Red Blood Cell Count 5.17 M/uL (3.86-4.86)
[2020-05-23 05:42] LABS: Ferritin 873.1 ng/mL (8-388); Magnesium 1.9 mg/dL (1.8-2.4); Potassium 3.8 mmol/L (3.5-5.1)
[2020-05-23] MEDS ORDERED: POTASSIUM 25 MEQ EFFERV TAB PO ONE (05:46)
[2020-05-23] MEDS: INSULIN -REGULAR HUMAN 50 UNIT/0.5 ML ML SQ SCH ×5 (06:00→23:47)
[2020-05-23] MEDS: METHYLPREDNISOLONE 40 MG INJ IV SCH ×2 (08:13→21:03)
[2020-05-23] MEDS: ENOXAPARIN 80 MG/0.8 ML SQ SCH ×2 (08:17→21:02)
[2020-05-23] MEDS: ZINC SULFATE 220 MG CAP PO SCH (08:17)
[2020-05-23] MEDS: VITAMIN D 5,000 UNIT CAP PO SCH (08:17)
[2020-05-23] MEDS: CALCIUM CARBONATE 500 MG TAB PO SCH (08:17)
[2020-05-23] MEDS: ASCORBIC ACID 500 MG TABLET PO SCH ×4 (08:17→21:03)
[2020-05-23] MEDS: POTASS/SODIUM PHOSPHATE 1 PKT POWD.PACK PO SCH (08:17)
[2020-05-23] MEDS: AMLODIPINE 10 MG TAB PO SCH (08:17)
[2020-05-23] MEDS: ENSURE ENLIVE 237 ML CAN PO SCH (08:19)
[2020-05-23] MEDS: THIAMINE 200 MG/2 ML INJ IVP SCH ×2 (08:19→21:04)
[2020-05-23] MEDS: INSULIN GLARGINE 100 UNITS/ML SQ SCH ×2 (08:19→21:01)
--- NOTE | 2020-05-23 08:30 | ECHO ---
HEIGHT: 5 ft 4 in WEIGHT: 166 lb 14.4 oz DATE OF STUDY: 05/22/[address]: Barry Jonas MD 2-DIMENSIONAL: YES M.MODE: YES DOPPLER: YES COLOR FLOW: YES TDS: PORTABLE: DEFINITY: BUBBLE STUDY: DIAGNOSIS: BACTEREMIA CARDIAC HISTORY: CATHERIZATION: SURGERY: PROSTHETIC VALVE: PACEMAKER: MEASUREMENTS (cm) DIASTOLIC (NORMALS) SYSTOLIC (NORMALS) IVSd 1.3 (0.6-1.2) LA Diam (1.9-4.0) LVEF 68% LVIDd 5.1 (3.5-5.7) LVIDs 3.1 (2.0-3.5) %FS 38% LVPWd 1.5 (0.6-1.2) Ao Diam 3.2 (2.0-3.7) 2 DIMENSIONAL ASSESSMENT: RIGHT ATRIUM: NORMAL LEFT ATRIUM: NORMAL RIGHT VENTRICLE: NORMAL LEFT VENTRICLE: NORMAL TRICUSPID VALVE: NORMAL MITRAL VALVE: NORMAL PULMONIC VALVE: NORMAL AORTIC VALVE: MILD AORTIC INSUFFIENCY PERICARDIAL EFFUSION: NONE AORTIC ROOT: NORMAL LEFT VENTRICULAR WALL MOTION: NORMAL DOPPLER/COLOR FLOW: SEE BELOW COMMENTS: NORMAL LEFT VENTRICULAR EJECTION FRACTION (HYPERDYNAMIC LEFT VENTRICLE). EJECTION FRACTION >60%. NO VEGETATION WAS SEEN ON THIS EXAM IF CLINICALLY INDICATED RECOMMEND TRANSESOPHAGEAL ECHOCARDIOGRAM. TECHNOLOGIST: AURELIANO DIANE
--- NOTE | 2020-05-23 11:54 | P.PN ---
Subjective Date of Service: 05/23/20 Primary Care Provider: none Chief Complaint: Respiratory failure altered mental status A 74 yo woman with PMHx of HTN and hyperthyroidism recently Dx with COVID presented to ER with weakness and SOB Pt was hypoxic and hypotemsive started on Levophed, Cr 1.4 today mentally improving cont with high O2 requirement Dc IVF once start tub Feeding Physical exam general: Awake and alert , NAD Neck; Supple, No elevated JVD hear: RRR, normal S1,2 no murmur or rub Abdomen: Soft , Nt Extremities no edema, A/P ERIC due to dehydration resolved Sepsis enterococcus bacteremia Cont ABx repeated cultures no growth mild hypokalmeia due to poor oral intake resolved COVID 19 pneumonia on High O2 UTI cont ABx Total time spent 25min Physical Examination - Vital Signs Temperature: 97.3 F Blood Pressure: 143/73 Pulse: 105 Respirations: 24 Pulse Ox (%): 91 Assessment And Plan Physician Review: Patient Assessed, Agree with Above Assessment and Plan
[2020-05-23] MEDS: JEVITY 1.5 CAL LIQUID 1,000 ML BOT FT SCH ×3 (12:24→21:05)
[2020-05-23] MEDS ORDERED: D5W 1,000 ML with POTASSIUM CL 20 MEQ IV SCH ×2 (12:30)
[2020-05-23] MEDS: VANCOMYCIN 1.25 GM in NA CHLORIDE 0.9% 250 ML IVPB SCH (14:10)
[2020-05-23] MEDS ORDERED: D50W 25 GM/50 ML VIAL IV PRN (18:00)
[2020-05-23] MEDS ORDERED: D50W 25 GM/50 ML SYRINGE IV PRN (20:24)
--- NOTE | 2020-05-23 20:28 | P.PN ---
Subjective Date of Service: 05/23/20 Primary Care Provider: none Chief Complaint: Respiratory failure altered mental status Subjective: Improving (more awake/alert, follows simple commands, responds to questiosn yes/no. mumbles name when asked. denies pain) Physical Examination - Vital Signs Temperature: 97.3 F Blood Pressure: 120/62 Pulse: 101 Respirations: 25 Pulse Ox (%): 87 Assessment & Plan Physician Review Additional Text: Physical Exam: Gen: confused, sleepy, but alert - seems to understand better today, nods yes/no HEENT: sclera anicteric CV: RRR, no edema Pulm: nonlabored on 2 LNC. Abd: soft, non-distended Ext: no rash Neuro: moves all 4 extremities, 5/5 strength. nonfocal Problem List: Acute hypoxemic respiratory failure secondary to COVID-19 Pneumonia Sepsis with Septic Shock on admission due to UTI / bacteremia, resolved UTI, cystitis - E. coli Enterococcus bacteremia Acute renal failure Acute Metabolic encephalopathy secondary to infection / septic shock Agitation sepsis / septic shock resolved UTI & bacteremia - sensitivities reviewed and switch to Levaquin on 05/21, was previously on Rocephin. Enterococcus resistant to cephalosporins. Vancomycin added by Pulm on 05/22 repeat blood culture: no growth Unclear etiology of enterococcus bacteremia, half of blood cultures were positive, urine did not grow enterococcus, too unstable for CT abd at this time Will obtain echocardiogram to evaluate for vegetation continues with agitation / delirium / metabolic encephalopathy, but improving every day Son states patient's baseline is high-functioning, "takes care of everything" between herself and her . wean O2 as tolerated, patient pulling at NC/mask, needs 1:1 sitter, sedation PRN Pulm consulted, appreciate assistance acute renal failure / hypernatremia - nephrology consulted, improving on D5 dobhoff placed on 05/22 for enteral feeds Dispo: anticipate dc home once encephalopathy resolves and O2 requirement < 4L Time Spent Managing Pts Care (In Minutes): 35
[2020-05-23] MEDS: Levofloxacin500mg IV 500 MG/100 ML BAG IV SCH (21:06)
[2020-05-24 05:16] LABS: Absolute Lymphocytes (CBC) 0.3 K/uL (0.7-4.9); Basophils % 0.3 % (0-1.3); Lymphocytes % 1.6 % (15.3-44.8); MPV 8.6 fL (7.6-11.3); RBC Red Blood Cell Count 5.25 M/uL (3.86-4.86)
[2020-05-24] MEDS: INSULIN -REGULAR HUMAN 50 UNIT/0.5 ML ML SQ SCH ×3 (05:54→17:38)
[2020-05-24 06:07] LABS: ALT/SGPT 62 U/L (12-78); Albumin 2.4 g/dL (3.4-5.0); Alkaline Phosphatase 68 U/L (45-117); BUN Blood Urea Nitrogen 17 mg/dL (7-18); Bicarbonate 27 mmol/L (21-32); Bilirubin Total 0.9 mg/dL (0.2-1.0); Ferritin 897.9 ng/mL (8-388); Glucose Level 173 mg/dL (74-106); Protein, Total 5.7 g/dL (6.4-8.2); Sodium Level 140 mmol/L (136-145)
[2020-05-24 06:09] LABS: AST/SGOT 44 U/L (15-37); C-Reactive Protein < 2.90 mg/L (<3.00); Magnesium 2.1 mg/dL (1.8-2.4); Potassium 4.4 mmol/L (3.5-5.1)
[2020-05-24 06:15] LABS: Blood Morphology Comment NOT SEEN (NOT SEEN); Platelet Estimate ADEQ; Platelets, Giant FEW
[2020-05-24] MEDS: ASCORBIC ACID 500 MG TABLET PO SCH ×4 (08:53→21:22)
[2020-05-24] MEDS: ZINC SULFATE 220 MG CAP PO SCH (08:53)
[2020-05-24] MEDS: AMLODIPINE 10 MG TAB PO SCH (08:53)
[2020-05-24] MEDS: VITAMIN D 5,000 UNIT CAP PO SCH (08:53)
[2020-05-24] MEDS: CALCIUM CARBONATE 500 MG TAB PO SCH (08:53)
[2020-05-24] MEDS: METHYLPREDNISOLONE 40 MG INJ IV SCH ×2 (08:54→21:22)
[2020-05-24] MEDS: THIAMINE 200 MG/2 ML INJ IVP SCH ×2 (08:54→21:23)
[2020-05-24] MEDS: INSULIN GLARGINE 100 UNITS/ML SQ SCH ×2 (08:54→21:19)
[2020-05-24] MEDS: ENOXAPARIN 80 MG/0.8 ML SQ SCH ×2 (08:54→21:23)
[2020-05-24] MEDS: POTASS/SODIUM PHOSPHATE 1 PKT POWD.PACK PO SCH (08:54)
[2020-05-24] MEDS: JEVITY 1.5 CAL LIQUID 1,000 ML BOT FT SCH ×4 (08:56→21:20)
--- NOTE | 2020-05-24 12:12 | P.PN ---
Subjective Date of Service: 05/24/20 Primary Care Provider: none Chief Complaint: Respiratory failure altered mental status Subjective: Improving (more awake/alert today, understanding my questions, she is oriented x2. Slight slurring of words / weak voice. denies pain) Review of Systems 10-point ROS is otherwise unremarkable Physical Examination - Vital Signs Temperature: 97.1 F Blood Pressure: 132/71 Pulse: 85 Respirations: 24 Pulse Ox (%): 89 Assessment & Plan Physician Review: Patient Assessed, Agree with Above Assessment and Plan Physician Review Additional Text: Physical Exam: Gen: AAOx2, with some mild confusion still, follows commands HEENT: sclera anicteric, PERRL CV: RRR, no edema Pulm: nonlabored on 3 LNC. Abd: soft, non-distended Ext: no rash Neuro: moves all 4 extremities, 5/5 strength. weak voice, mild slurring of speech, slight R lower face droop at baseline, but symmetric smile Problem List: Acute hypoxemic respiratory failure secondary to COVID-19 Pneumonia Sepsis with Septic Shock on admission due to UTI / bacteremia, resolved UTI, cystitis - E. coli Enterococcus bacteremia Acute renal failure Acute Metabolic encephalopathy secondary to infection / septic shock Agitation sepsis / septic shock resolved UTI & bacteremia - sensitivities reviewed, switched to Levaquin on 05/21 from rocephin. Vancomycin added by Pulm on 05/22 for better coverage of enterococcus repeat blood culture: no growth Unclear etiology of enterococcus bacteremia, half of blood cultures were positive, urine did not grow enterococcus. denies abd pain TTE (05/22): no evidence of vegetation Son states patient's baseline is high-functioning, "takes care of everything" between herself and her . wean O2 as tolerated Pulm consulted, appreciate assistance acute renal failure / hypernatremia - nephrology consulted, improved/resolved dobhoff placed on 05/22 for enteral feeds, can eventually transition to oral as patient becomes more alert and working with speech therapy will check CT brain to eval with difficulty speaking / ?facial droop Dispo: anticipate dc home once encephalopathy resolves and O2 requirement < 4L, >48hrs Time Spent Managing Pts Care (In Minutes): 40
--- NOTE | 2020-05-24 12:17 | RAD REPORT ---
EXAM DESCRIPTION: CT - Head Brain Wo Cont - 05/24/2020 11:50 am CLINICAL HISTORY: confusion, transient alteration of awareness COMPARISON: No comparisonsNo comparisons TECHNIQUE: Axial 5 mm thick images of the head were obtained without IV contrast. All CT scans are performed using dose optimization technique as appropriate and may include automated exposure control or mA/KV adjustment according to patient size. FINDINGS: No intracranial hemorrhage, mass, edema or shift of mid-line structures. No acute infarcti on changes seen. No cortical edema or sulcal effacement. Atrophy changes are very minimal. Ventricles are normal in size. Chronic ischemic changes are present in the cerebral white matter and probably w ithin the brainstem. Mastoid air cells and visualized portions of the paranasal sinuses are clear of significant disease. Minimal mucosal thickening the left frontal ethmoid junction. No acute bony findings. IMPRESSION: Negative non-contrast CT head examination for acute finding.
--- NOTE | 2020-05-24 15:03 | PN ---
Date of Progress Note: 05/24/2020 Subjective: The patient was admitted with COVID pneumonia, altered mental status, bacteremia. Physical Examination: Vital Signs: Blood pressure 132/71, pulse of 85. The patient had good urine output. Chest: Clear to auscultation. Heart: S1 and S2. Systolic murmur. Abdomen: Soft, nontender. Extremities: No edema. Neuro: Today patient is awake, open eyes, follow command, but still confused. Laboratory Data: WBC 19.6, H and H 14.7/45. Sodium 140, potassium 4.4, bicarb 27, BUN 17, creatinine 0.7, calcium 8.7. Ferritin down to 897. PTH 14. Current Medications: The patient on its include: 1. Vancomycin. 2. Levaquin. 3. Lovenox. 4. Calcium carbonate. 5. Amlodipine. 6. Jevity. 7. Insulin. 8. KCl. Assessment/plan: 1. Acute kidney injury secondary to prerenal. Recovered and resolved. 2. Hypernatremia, trending down. We will follow up with primary. Continue free water. 3. Hypokalemia. Status post supplement, recovered and resolved. 4. Bacteremia secondary to enterococcus faecalis. We will follow up with the primary. 5. Urinary tract infection secondary to Escherichia coli. Continue current antibiotic. time spent exam the patient face to face , place order , discussed with the nursing staff, discussing the case with other steam bone press tender and applications development consultant including hospitalist 45 min. CHRISTIANO Voice ID: [id number] Report ID: [id number] [facility]
[2020-05-24] MEDS: VANCOMYCIN 1.25 GM in NA CHLORIDE 0.9% 250 ML IVPB SCH (15:06)
[2020-05-24] MEDS: Levofloxacin500mg IV 500 MG/100 ML BAG IV SCH (21:19)
[2020-05-24] MEDS: HYDRALAZINE HCL 20 MG/ML VIAL IV PRN (21:22)
[2020-05-25] MEDS: INSULIN -REGULAR HUMAN 50 UNIT/0.5 ML ML SQ SCH ×4 (00:37→17:04)
[2020-05-25 06:41] LABS: Absolute Lymphocytes (CBC) 0.4 K/uL (0.7-4.9); Basophils % 0.4 % (0-1.3); Hematocrit 41.5 % (36.0-45.0); Lymphocytes % 1.7 % (15.3-44.8); MPV 8.7 fL (7.6-11.3); RBC Red Blood Cell Count 4.87 M/uL (3.86-4.86)
[2020-05-25 07:43] LABS: BUN Blood Urea Nitrogen 22 mg/dL (7-18); Bicarbonate 26 mmol/L (21-32); Ferritin 689.9 ng/mL (8-388); Glucose Level 223 mg/dL (74-106); Potassium 5.5 mmol/L (3.5-5.1); Sodium Level 139 mmol/L (136-145)
[2020-05-25 07:46] LABS: C-Reactive Protein < 2.90 mg/L (<3.00); Magnesium 1.9 mg/dL (1.8-2.4)
[2020-05-25] MEDS: CALCIUM CARBONATE 500 MG TAB PO SCH (10:10)
[2020-05-25] MEDS: POTASS/SODIUM PHOSPHATE 1 PKT POWD.PACK PO SCH (10:10)
[2020-05-25] MEDS: VITAMIN D 5,000 UNIT CAP PO SCH (10:10)
[2020-05-25] MEDS: ZINC SULFATE 220 MG CAP PO SCH (10:10)
[2020-05-25] MEDS: METHYLPREDNISOLONE 40 MG INJ IV SCH ×2 (10:11→21:54)
[2020-05-25] MEDS: ENOXAPARIN 80 MG/0.8 ML SQ SCH ×2 (10:11→21:53)
[2020-05-25] MEDS: INSULIN GLARGINE 100 UNITS/ML SQ SCH ×2 (10:11→21:54)
[2020-05-25] MEDS: AMLODIPINE 10 MG TAB PO SCH (10:11)
[2020-05-25] MEDS: ASCORBIC ACID 500 MG TABLET PO SCH ×4 (10:11→21:53)
[2020-05-25] MEDS: JEVITY 1.5 CAL LIQUID 1,000 ML BOT FT SCH ×4 (10:12→21:55)
[2020-05-25] MEDS: THIAMINE 200 MG/2 ML INJ IVP SCH ×2 (10:14→21:54)
[2020-05-25 10:45] LABS: Blood Morphology Comment NOT SEEN (NOT SEEN); Platelet Estimate ADEQ
[2020-05-25 11:24] LABS: Urine Appearance CLEAR; Urine Bilirubin NEGATIVE (NEG); Urine Blood NEGATIVE (NEG); Urine Color YELLOW; Urine Glucose TRACE (NEG); Urine Protein 1+ (NEG); Urine Urobilinogen 0.2 mg/dL (0.2-1.0); Urine pH 6.5 (5.0-7.0)
[2020-05-25 11:26] LABS: Urine Microscopic Reflex ORDER UMIC
--- NOTE | 2020-05-25 11:41 | RAD REPORT ---
EXAM DESCRIPTION: CT - Chest Abdomen Pelvis W Cont - 05/25/2020 8:55 am CLINICAL HISTORY: Chest and abdomen pain. abd pain COMPARISON: Abdomen 1 View (KUB) dated 05/22/2020 TECHNIQUE: Approximately 100 mL nonionic IV contrast was administered to the patient. All CT scans are performed using dose optimization technique as appropriate and may include automated exposure control or mA/KV adjustment according to patient size. FINDINGS: Extensive ground-glass opacity are present bilaterally, greater in the lung bases in the p eriphery of both lungs compatible with COVID-19 infection.Enteric tube is seen within the esophagus a nd has its tip in the duodenum. Slight duodenal inflammation is present.No pleural or pericardial eff usion.No intrathoracic adenopathy. Diffuse fatty liver is present. The spleen, pancreas adrenal glands and kidneys show no acute process . No bowel obstruction, free air, free fluid or abscess. Normal appendix. Prominent diverticulosis of t he sigmoid colon is present. No pathologic lymphadenopathy in the abdomen or pelvis. Lumbosacral degenerative changes are present. IMPRESSION: Extensive ground-glass opacity bilaterally as detailed most compatible with COVID-19 inf ection. Elsewhere, no acute abnormality is discerned. Prominent sigmoid diverticulosis coli without diverticulitis.
[2020-05-25 12:18] LABS: Urine Bacteria <20 /HPF (<20); Urine RBC NONE SEEN /HPF (NONE SEEN)
--- NOTE | 2020-05-25 13:23 | P.PN ---
Subjective Date of Service: 05/25/20 Primary Care Provider: none Chief Complaint: Respiratory failure altered mental status Subjective: Improving (More awake and alert, alert oriented x3, reports dry a mouth/throat, denies any pain. Asking when she will go home. No acute events overnight) Review of Systems 10-point ROS is otherwise unremarkable Physical Examination - Vital Signs Temperature: 96.9 F Blood Pressure: 133/63 Pulse: 82 Respirations: 19 Pulse Ox (%): 92 Assessment & Plan Physician Review Additional Text: Physical Exam: Gen: AAOx3 HEENT: sclera anicteric, PERRL CV: RRR, no edema Pulm: nonlabored on 3 LNC. Bibasilar crackles Abd: soft, nondistended, diffuse mild tenderness to palpation, more severe in suprapubic region Ext: no rash, no edema Neuro: moves all 4 extremities. weak voice, mild slurring of speech, slight R lower face droop at baseline, but symmetric smile Problem List: Acute hypoxemic respiratory failure secondary to COVID-19 Pneumonia Sepsis with Septic Shock on admission due to UTI / bacteremia, resolved UTI, cystitis - E. coli Enterococcus bacteremia Acute renal failure Acute Metabolic encephalopathy secondary to infection / septic shock Agitation sepsis / septic shock resolved UTI & bacteremia - sensitivities reviewed, switched to Levaquin on 05/21 from rocephin. Vancomycin added by Pulm on 05/22 for better coverage of enterococcus -leukocytosis continues to climb, however patient is clinically improving. ID consulted, recommended switch to unasyn - will need antibiotics for 2 weeks from today, can switch to p.o. Augmentin when improved / taking PO repeat blood culture 05/18: no growth; will obtain repeat blood cultures now Unclear etiology of enterococcus bacteremia, half of blood cultures were positive, urine did not grow enterococcus. Reporting abdominal pain now Will obtain CT abdomen/pelvis TTE (05/22): no evidence of vegetation Son states patient's baseline is high-functioning, "takes care of everything" b etween herself and her . Pulm consulted, appreciate assistance, wean O2 acute renal failure / hypernatremia - nephrology consulted, improved/resolved dobhoff placed on 05/22 for enteral feeds, can eventually transition to oral as patient becomes more alert and working with speech therapy CT head negative, will obtain MRI tomorrow Dispo: anticipate dc home once encephalopathy resolves and O2 requirement < 4L, >48hrs Time Spent Managing Pts Care (In Minutes): 35
[2020-05-25] MEDS ORDERED: AMPICILLIN/SULBACT 1.5GM VIAL IVPB SCH (14:00)
[2020-05-25] MEDS: AMPICILLIN/SULBACT 1.5 GM in NA CHLORIDE 0.9% 100 ML IV SCH (14:35)
--- NOTE | 2020-05-25 18:50 | PN ---
Date of Progress Note: 05/25/2020 Subjective: The patient was admitted with COVID pneumonia, acute kidney injury secondary to COVID nephropathy, recovered, resolved. The patient is more awake. Physical Examination: Vital Signs: Blood pressure 133/63, pulse of 82. Chest: Clear to auscultation. Heart: S1, S2. Systolic murmur. Abdomen: Soft, nontender. Extremities: Trace edema. Neurologic: Alert. Moving 4 extremities. Oriented to person. Laboratory Data: WBC 25.1, H and H 13.5/41.5. Sodium 139, potassium 5.5, bicarb 26, BUN 22, creatinine 0.6, calcium 8.8, magnesium 1.9. Current Medications: Include calcium carbonate, Lovenox, Unasyn, amlodipine, hydralazine, Tylenol, zinc sulfate, Solu-Medrol, vitamin C, potassium phosphate. Assessment And Plan: 1. Acute kidney injury secondary to COVID pneumonia, recovered, resolved. 2. Hypernatremia, resolved. 3. Hyperkalemia, used to be hypokalemia, currently hyperkalemia. We will discontinue supplement. 4. Bacteremia secondary to enterococcus. The patient is currently on antibiotic. We will follow up with primary. 5. Urinary tract infection secondary to Escherichia coli. Continue current antibiotic. time spent exam the patient face to face , place order , discussed with the nursing staff, discussing the case with other steam plant control room operator and consumer experience consultant including hospitalist 45 min. CHRISTIANO Voice ID: [id number] Report ID: [id number] [facility]
[2020-05-26] MEDS: AMPICILLIN/SULBACT 1.5 GM in NA CHLORIDE 0.9% 100 ML IV SCH ×2 (00:35→08:52)
[2020-05-26 04:14] LABS: Absolute Lymphocytes (CBC) 0.6 K/uL (0.7-4.9); Basophils % 0.1 % (0-1.3); Hematocrit 40.9 % (36.0-45.0); Lymphocytes % 1.6 % (15.3-44.8); RBC Red Blood Cell Count 4.75 M/uL (3.86-4.86)
[2020-05-26 05:06] LABS: Blood Morphology Comment NOT SEEN (NOT SEEN); Platelet Estimate ADEQ
[2020-05-26] MEDS: INSULIN -REGULAR HUMAN 50 UNIT/0.5 ML ML SQ SCH ×3 (05:33→11:49)
[2020-05-26 08:18] LABS: Albumin 2.3 g/dL (3.4-5.0); Bilirubin Total 0.8 mg/dL (0.2-1.0); Ferritin 719.2 ng/mL (8-388); Potassium 4.7 mmol/L (3.5-5.1); Protein, Total 5.3 g/dL (6.4-8.2)
[2020-05-26] MEDS: INSULIN GLARGINE 100 UNITS/ML SQ SCH (08:51)
[2020-05-26] MEDS: VITAMIN D 5,000 UNIT CAP PO SCH (08:51)
[2020-05-26] MEDS: AMLODIPINE 10 MG TAB PO SCH (08:52)
[2020-05-26] MEDS: THIAMINE 200 MG/2 ML INJ IVP SCH (08:52)
[2020-05-26] MEDS: METHYLPREDNISOLONE 40 MG INJ IV SCH (08:52)
[2020-05-26] MEDS: ZINC SULFATE 220 MG CAP PO SCH (08:52)
[2020-05-26] MEDS: CALCIUM CARBONATE 500 MG TAB PO SCH (08:52)
[2020-05-26] MEDS: ASCORBIC ACID 500 MG TABLET PO SCH ×2 (08:52→11:47)
[2020-05-26] MEDS: ENOXAPARIN 80 MG/0.8 ML SQ SCH (08:53)
[2020-05-26] MEDS: JEVITY 1.5 CAL LIQUID 1,000 ML BOT FT SCH ×2 (08:53→11:47)
[2020-05-26] MEDS: POTASS/SODIUM PHOSPHATE 1 PKT POWD.PACK PO SCH (09:05)
[2020-05-26] MEDS ORDERED: NA CHLORIDE 0.9% 500 ML IV ONE (11:29)
--- NOTE | 2020-05-26 12:22 | EEG ---
CHART: [id number] TEST ID#: [id number] DATE OF STUDY: 05/22/2020 THE EEG WAS RECORDED PORTBALE IN THE PATIENT'S ROOM ON A 17 CHANNEL MACHINE. ELECTRODES WERE APPLIED IN THE USUAL MANNER USING THE INTERNATIONAL 10-20 SYSTEM. THE WAKING BACKGROUND RHYTHM IN THIS RECORD CONSISTS OF POORLY DEVELOPED AND POORLY ORGANIZED WAVES OF 4-6 HZ., IN A WIDE DISTRIBUTION WHICH ATTENUATE NORMALLY WITH EYE OPENING. [id number] 15-18 HZ ACTIVITY IS DIFFUSELY EXPRESSED. MODERATE VOLTAGE 1.5-3 HZ ACTIVITY IS EXPRESSED IN THE FRONTAL REGIONS. THERE ARE NO FOCAL OR LATERALIZING FEATURES. NO EPILEPTIFORM ACTIVITY APPEARS. SLEEP DID NOT OCCUR. HYPERVENTILATION WAS NOT PERFORMED. PHOTIC STIMULATION PRODUCED NO DRIVING BILATERALLY. IMPRESSION: THIS IS A MODERATELY ABNORMAL EEG DUE TO A MODERATELY SLOW BACKGROUND. THIS IS A NON-SPECIFIC FINDING INDICATING THE PRESENCE OF A MODERATE DIFFUSE DISTURBANCE IN CEREBRAL FUNCTION.
[2020-05-26 12:59] LABS: C.diff Antigen/Toxin Ag neg : Tox neg (NEG : NEG)
[2020-05-26 15:41] VITALS: O2SAT 92
[2020-05-26] MEDS ORDERED: ALBUMIN HUMAN 25% 100 ML IV ONE (17:00)
--- NOTE | 2020-05-26 17:15 | RAD REPORT ---
EXAM DESCRIPTION: RAD - Chest Single View - 05/26/2020 4:57 pm CLINICAL HISTORY: breathing changes, shortness breath COMPARISON: Portable May 21, May 25 CT chest TECHNIQUE: AP portable chest image was obtained 05/26/2020 4:57 pm . FINDINGS: Lung volumes are low. There is been very substantial improvement in the bilateral airspace opacification seen on the May 21 study. There has probably been some additional improvement fr om the May 25 CT chest. Remnant opacification is most pronounced in the lateral mid and lower lef t lung field. No failure or volume overload. Feeding tube is in place extending below the diaphragm. Heart and vasculature are normal. No measurab le pleural effusion and no pneumothorax. No acute bony abnormality seen. No acute aortic findings jovan pected. IMPRESSION: Substantial improvement in the bilateral pneumonia since May 21 portable imaging a nd probable further improvement since the May 25 CT study.
[2020-05-26 17:29] VITALS: TEMP 96
--- NOTE | 2020-05-26 17:33 | CON ---
History Of Present Illness: This is a 74-year-old female, admitted to hospital with COVID pneumonia. The patient is currently on 3 L nasal cannula, not able to communicate well. Most of the history w as obtained through medical records and staff. The patient is coming on May 08 with fever, fat igue, cough since few days prior to admission. The patient denies any other complaints at this time, but mostly able to wave her hand and shake her head, otherwise unable to follow any other commands. The patient also has bacteremia secondary to Enterococcus, currently being treated with Unasyn and U TI secondary to E coli. She has been treated for septic shock. As per staff, the patient is improvi ng slowly. Her leukocytosis has jumped from 25,000 to 37,000 today with neutrophil 94%. Bacteremia secondary to E coli on the blood cultures drawn on May 15 and urine culture shows E coli done on May 16. The patient had a CT abdomen done yesterday shows extensive ground-glass opacity bilater ally as detailed most compatible with COVID-19 pneumonia, prominent sigmoid diverticulosis without di verticulitis. Past Medical History: Hypertension, hypothyroidism, varicose vein stripping, obesity. Family History: Hypertension. Social History: Tobacco never. Alcohol never. Medications: The patient is currently being treated with Unasyn. Before, she was on Levaquin and va ncomycin. See MAR for other medications. Allergies: CORTISONE. Review of Systems: Unable to obtain. Physical Examination: General: This is a 74-year-old female, lying in bed, on 3 L nasal cannula. Vital Signs: Temperature 96.9, pulse 114, respirations 26, blood pressure 100/55. HEENT: Unremarkable. Neck: Supple. Lungs: Basal crackles. Heart: S1, S2. Regular. Abdomen: Soft. Bowel sounds present. Extremities: No edema. Laboratory Data: Shows WBC 37.9, hemoglobin 13.2, platelets are 263. Chemistry shows sodium 136, po tassium 4.7, chloride 101, bicarb 29, BUN 24, creatinine 0.68, glucose is 215, albumin is 2.3. CT ab domen and pelvis as per HPI. Head CT done on May 24, shows no acute finding. Assessment And Plan: A 74-year-old female coming in with COVID-19 pneumonia, bilateral pneumonia. A lso has bacteremia secondary to Enterococcus faecalis and urinary tract infection secondary to Escher ichia coli and having reactive leukocytosis with increased neutrophil, lactic acid of 2.6, and albumi n of 2.3. Continue nutritional support, oxygen therapy, and Unasyn. Repeat CBC and cultures if need ed. We will follow the patient closely. Thank you Dr. Jonas for consult. NF/MODL Voice ID: [id number] Report ID: [id number]
--- NOTE | 2020-05-26 17:55 | P.PN ---
Subjective Date of Service: 05/26/20 Primary Care Provider: none Chief Complaint: Respiratory failure altered mental status Subjective: No new changes (alert and oriented x3, reports dry mouth/throat, denies abdominal pain, denies any other pain anywhere. Feels she is about the same maybe slightly better than yesterday) Review of Systems 10-point ROS is otherwise unremarkable Physical Examination - Vital Signs Temperature: 96 F Blood Pressure: 92/55 Pulse: 117 Respirations: 30 Pulse Ox (%): 94 Assessment & Plan Physician Review Additional Text: Physical Exam: Gen: AAOx3 HEENT: sclera anicteric, PERRL CV: Sinus tachycardia: 90-105, trace edema Pulm: nonlabored on 3 LNC. Mild Bibasilar crackles, shallow respirations Abd: soft, nondistended, nontender Ext: no rash, no edema Neuro: moves all 4 extremities. weak voice, slight R lower face droop at baseline, but symmetric smile Problem List: Acute hypoxemic respiratory failure secondary to COVID-19 Pneumonia Sepsis with Septic Shock on admission due to UTI / bacteremia, resolved UTI, cystitis - E. coli Enterococcus bacteremia Acute renal failure Acute Metabolic encephalopathy secondary to infection / septic shock Agitation UTI & bacteremia - sensitivities reviewed, switched to Levaquin on 05/21 from rocephin. Vancomycin added by Pulm on 05/22 for better coverage of enterococcus -leukocytosis continues to climb, however patient is clinically improving. ID consulted, recommended switch to unasyn - will need antibiotics for 2 weeks from 05/25, can switch to p.o. Augmentin when improved / taking PO repeat blood culture 05/18: no growth; will obtain repeat blood cultures now Unclear etiology of enterococcus bacteremia, half of blood cultures were positive, urine did not grow enterococcus. reported abd pain yesterday, CT abd/pelvis was negative. no pain/tenderness today TTE (05/22): no evidence of vegetation Son states patient's baseline is high-functioning, "takes care of everything" between herself and her . Pulm consulted, appreciate assistance, wean O2 as tolerated acute renal failure / hypernatremia - nephrology consulted, improved/resolved dobhoff placed on 05/22 for enteral feeds, can eventually transition to oral as patient becomes more alert and working with speech therapy CT head negative, MRI ordered Dispo: anticipate dc home once encephalopathy resolves and O2 requirement < 4L, >48hrs Time Spent Managing Pts Care (In Minutes): 35
[2020-05-26] MEDS ORDERED: VANCOMYCIN 2 GM in NA CHLORIDE 0.9% 500 ML IVPB ONE (18:00)
[2020-05-26] MEDS ORDERED: D50W 25 GM/50 ML VIAL IV PRN (18:00)
[2020-05-26] MEDS ORDERED: PIPER/TAZO/NS 3.375gm 3.375 GM/100 ML BAG IVPB SCH (18:00)
[2020-05-26] MEDS ORDERED: NA CHLORIDE 0.9% 1,000 ML IV SCH ×2 (18:00)
[2020-05-26] MEDS ORDERED: AMPICILLIN/SULBACT 3 GM in NA CHLORIDE 0.9% 100 ML IV SCH (18:00)
[2020-05-26 18:34] LABS: Arterial Blood Carboxyhemoglob 0.7 % (0-1.5); Blood Gas Oxyhemoglobin 91.2 % (94-97); Blood O2 Saturation 93.1 % (92-98.5)
[2020-05-26] MEDS ORDERED: NOREPINEPHRINE 4 MG/4 ML VIAL ONE (18:53)
[2020-05-26] MEDS ORDERED: NA CHLORIDE 0.9% 0 ML ONE (18:54)
[2020-05-26] MEDS ORDERED: NOREPINEPHRINE 4mg/D5W 250mL 4 MG/250 ML BAG IV ONE (19:23)
[2020-05-26] MEDS ORDERED: RSI MEDICATION KIT IV ONE (19:40)
--- NOTE | 2020-05-26 19:57 | P.OP ---
Preoperative diagnosis: resp failure/code blue Postoperative diagnosis: code blue Primary procedure: endotracheal intubation Anesthesia: none. Estimated blood loss: none. Operative Technique: Pt was in supine position. a uzbek gauge 7.5 ET was passed into the trachea with a grade 1 view of the vocal cords. colorimetric change was seen on the CO2 meter. good air entry was perceived in both lung prakash. tube was secured at 24cm at the lips. Pulse oximetry of 91% was achieved on the peripheral pulse oximetry monitor. No blood loss with procedure. I personally performed procedure. Complications: Other (pt developed subcutaneous emphysema depicting pneumothorax)
--- NOTE | 2020-05-26 20:04 | P.PN ---
Date of Service: 05/26/20 Krzysztof smith note. Pt was seen having agonal breath and significant drop in blood pressure warranting call for physician evaluation. I arrived at bedside at 7.22pm. She was having agonal breath and plans were made for airways protection and further resuscitative measure. she had ETT passed into trachea at 7.25pm and she subsequently had severe bradycardia. Krzysztof smith was called and we started ACS management. she had V fib arrest and later this converted to asystole. she had 3-4 rounds of chest compressions and 3 doses of epinephrine. she had 200J of shock x1. 10-12 min into resuscitative measure, severe generalized subcutaneous emphysema was noted. repeat examination revealed a fixed and dilated pupil. resuscitative measures were stopped at 7.35pm. she was pronounced at 7.35pm. Family was informed about incident that lead to demise.
[2020-05-26 20:42] VITALS: BP 109/16
[2020-05-26] MEDS ORDERED: VANCOMYCIN 1.5 GM in NA CHLORIDE 0.9% 500 ML IVPB SCH (21:00)
[2020-05-26] MEDS ORDERED: METHYLPREDNISOLONE 125 MG INJ IV SCH (21:00)
[2020-05-26] MEDS ORDERED: ATROPINE SULF 1 MG/10 ML SYR IV ONE (21:44)
[2020-05-26] MEDS ORDERED: NA CHLORIDE 0.9% 1,000 ML IV ONE (21:44)
[2020-05-26] MEDS ORDERED: EPINEPHrine 1 MG/10 ML SYR IV ONE (21:44)
--- NOTE | 2020-05-26 22:09 | PN ---
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 History Of Present Illness: Renal function has improved and acute kidney injury resolved. Kidney fu nction is back to baseline. There is high BUN and creatinine ratio secondary to prerenal azotemia an d hypercatabolic state. The patient had bacteremia secondary to enterococcus urinary tract infection , complicated with E coli infection. The patient is on antibiotics. Review of Systems: Unobtainable. Physical Examination: Lungs: Clear to auscultation. Heart: S1, S2. Systolic murmur 2/6 left lower sternal border. Abdomen: Soft, nontender, benign. Extremities: Edema trace. Laboratory Data: Sodium 139, potassium 5.5, bicarbonate 26, BUN 22, creatinine 0.6, magnesium 1.8. Impression And Plan: 1.Acute kidney injury secondary to chronic pneumonia. Renal function has resolved. Acute kidney fa ilure resolved. Acute kidney failure was due to acute tubular necrosis and COVID nephropathy. AVOID nephrotoxic medication. 2.Hyperkalemia. Currently hyperkalemia, previously hypokalemia. Plan was to discontinue supplement s and continue to monitor. 3.Bacteremia secondary to enterococcus. Avoid Bactrim in the patient with history of acute kidney i njury and electrolyte abnormalities. The patient may need to have ampicillin according to urine cult ure. 4.Urinary tract infection secondary to Escherichia coli with bacteremia secondary to enterococcus. Recommend ID consult. MICHELLE/ARTIE Voice ID: [id number] Report ID: [id number]
[2020-05-27] MEDS ORDERED: VANCOMYCIN 1.25 GM in NA CHLORIDE 0.9% 250 ML IVPB SCH (12:00)
--- NOTE | 2020-05-27 13:31 | P.DS ---
Admission Date: 05/15/20 Discharge Date: 05/27/20 Primary Care Provider: none Disposition: Discharge Condition: Reason for Admission: Respiratory failure altered mental status Consultations: Nephrology - Dr. Romero Pulmonology - Dr. Deandre LYNCH - Dr. De La Rosa Procedures: CXR (05/15): Mild to moderate pulmonary opacities are present bilaterally likely related to viral infection. The heart is mildly enlarged in size. No displaced fractures. Venous U/S (05/15): No evidence of left lower extremity deep venous thrombosis. CTA Chest (05/15): No evidence of pulmonary thromboembolism. Moderate findings which would be compatible with COVID-19 Renal U/S (05/16): Mild right-sided hydronephrosis. Bilateral medical renal disease evident. CXR (05/19): Minimal improvement in the bilateral pneumonia CXR (05/21): Moderate worsening in bilateral lung aeration since comparative study. KUB (05/22): Tip of the enteric tube is in the distal stomach. CT Head (05/24): Negative non-contrast CT head examination for acute finding. CT Chest/Abd/Pelvs (05/25): Extensive ground-glass opacity bilaterally as detailed most compatible with COVID-19 infection. Elsewhere, no acute abnormality is discerned. Prominent sigmoid diverticulosis coli without diverticulitis. CXR (05/26): Substantial improvement in the bilateral pneumonia since May 21 portable imaging and probable further improvement since the May 25 CT study. Problem List: Acute cardiopulmonary arrest secondary to severe sepsis complicated by DKA and possible pneumothorax Acute hypoxemic respiratory failure secondary to COVID-19 Pneumonia Sepsis with Septic Shock on admission due to UTI / bacteremia UTI, cystitis - E. coli Enterococcus bacteremia Acute renal failure Acute Metabolic encephalopathy secondary to infection / septic shock Agitation Brief History of Present Illness: Ms. Waite is a 74 yo F with HTN and hyperthyroidism here today for COVID+ test 05/08/20 and fever, fatigue and cough since 05/12. She denies N/V/D. On arrival, her O2sats are 88%. On exam, she is 94% spO2 on 3L of O2, hypotensive to 82/40, and difficult to arouse and keep awake during the exam. CXR revealed viral pneumonia. CTPE and Doppler US negative. Patient continues to be hypotensive after receiving 3 L of fluid. Femoral central line placed for administration of levophed. Patient found to have non-anion gap metabolic acidosis with suspicion for RTA. Na 137, K 3.4, Cl 106, HCO3 23, BUN 22, Cr 1.43, Glu 120. CRP 55.2 and ferritin 847.5. Hospital Course: Patient was admitted with severe sepsis, septic shock. Found to have COVID-19 pneumonia, E.coli UTI, and enterococcus bacteremia. She was given sepsis bolus in ED and had no minimal response to 3L of IVF, requiring central line placement and initiation of levophed. Patient has improvement of her vital signs, however then developed moderate-severe delirium and agitation. She would constantly rip off her oxygen / mask, and push staff away, requiring low doses of anti- psychotics. Patient eventually had improvement, was alert and oriented x 3, with very weak voice, and requiring ~2-3 L nasal cannula. She was noted to have mild R lower facial droop and weak cough/voice. An MRI was ordered but never obtained. A dobhoff was placed on 05/22 due to patient's lack of nutrition in nearly 1 week. On 05/24, her leukocytosis was noted to increase despite clinically improving. This was discussed with infectious disease, who recommended switching from levaquin & vanc to Unasyn. A peripheral smear was obtained and consistent with a reactive neutrophilia. On 05/25, patient reported some mild tenderness to palpation in her lower abdomen. A CT chest/abd/pelvis with IV contrast was obta ined which was only notable for COVID-19 pneumonia and diverticulosis without diverticulitis. Procalcitonin was negative. She denied h/o diabetes, but her glucose was elevated through her hosptialization, likely due to infection and steroid-induced. She was started and titrated up on Lantus and on sliding scale insulin. On 05/26: Called by RN , reported patient's BP was low, 90s/60s, review of EMR revealed patient's BP was 100/68 at 0800 and received norvasc 10mg @0852. Upon my arrival, manual recheck was 100/55 (~noon). Patient reported feeling about the same as this morning, breathing ok on 3 LNC, shallow respirations, but no increased work of breathing. She denied lightheadedness/dizziness, denied any chest pain / abdominal pain. Tube feeds were held, 500ml NS bolus ordered, recheck of BP after bolus ordered, additional NS @125ml/hr to start after 500 ml bolus. Lactate ordered and Glc POC: 235. ID recommended continuation of Unasyn, can consider increased to 3gm. Called again by RN @~1600, reported placing patient on venturi mask ~1 hour prior, patient with tachypnea, increased work of breathing, BP 100/50s. I evaluated patient, still AAOx3, increased WOB, tachypnea, tachycardia. Ordered stat CXR, 25gm albumin, CMP, CBC, repeat lactate, ABG, and to be transferred to ICU. Patient was difficult stick and slow to get labs. Upon arrival to ICU, ABG was obtained and revealed metabolic acidosis with compensatory resp alkalosis. Pulmonology and ID were contacted. Patient's steroids were increased, IV antibiotics were broadened to zosyn and vancomycin. IVF were ordered. There was consideration for central line placement due to 1 small IV access, however ICU nurse was able to obtain a second IV. PICC nurse was to be available soon and PICC line was ordered. POC glucose at 1751 was reported as 493, concern for DKA, metabolic panel was still unable to be obtained. Patient was continued on normal saline and given IV insulin, to recheck in 1 hour. In the evening, patient reportedly had agonal breathing and further hypotension. Cezar was paged to bedside at 1922. Patient was intubated at 1925 and subsequently developed severe bradycardia. Krzysztof smith was called, she had V fib arrest, later converted to asystole. Underwent 3-4 rounds of chest compressions and 3 doses of epinephrine. 200J shock x 1. After 10-12 minutes of resuscitation measures, severe generalized subcutaneous emphysema was noted. She was pronounced at 1935. Vital Signs/Physical Exam: Temp Pulse Resp BP Pulse Ox 96 F L 0 L 29 H 109/16 L 94 05/26/20 18:01 05/26/20 19:30 05/26/20 19:30 05/26/20 19:30 05/26/20 19:30 Laboratory Data at Discharge: WBC Cancelled 05/26/20 17:15 Hgb Cancelled 05/26/20 17:15 Hct Cancelled 05/26/20 17:15 Plt Count Cancelled 05/26/20 17:15 PT 12.2 SECONDS (9.5-12.5) 05/15/20 19:24 INR 1.03 05/15/20 19:24 APTT 29.5 SECONDS (24.3-36.9) 05/15/20 19:24 Sodium 135 mmol/L (136-145) L 05/26/20 18:05 Potassium 5.0 mmol/L (3.5-5.1) 05/26/20 18:05 BUN 33 mg/dL (7-18) H 05/26/20 18:05 Creatinine 1.43 mg/dL (0.55-1.3) H 05/26/20 18:05 Glucose 515 mg/dL (74-106) H* 05/26/20 18:05 Phosphorus 2.8 mg/dL (2.5-4.9) 05/21/20 03:40 Magnesium 1.9 mg/dL (1.8-2.4) 05/25/20 06:03 Total Bilirubin 0.8 mg/dL (0.2-1.0) 05/26/20 07:34 AST 37 U/L (15-37) 05/26/20 07:34 ALT 78 U/L (12-78) 05/26/20 07:34 Alkaline Phosphatase 64 U/L (45-117) 05/26/20 07:34 Triglycerides 84 mg/dL (<150) 05/16/20 05:20 Cholesterol 105 mg/dL (<200) 05/16/20 05:20 HDL Cholesterol 43 mg/dL (40-60) 05/16/20 05:20 Cholesterol/HDL Ratio 2.44 05/16/20 05:20 Home Medications: Atorvastatin Calcium [Lipitor] 20 mg PO BEDTIME 03/21/14 Doxepin HCl [Sinequan] 50 mg PO DAILY 03/21/14 Levothyroxine [Synthroid] 112 mcg PO DAILY 03/21/14 Losartan Potassium 100 mg PO DAILY 05/18/20 Metoprolol Tartrate 1 tab PO BEDTIME 05/18/20 Followup: NONE,NONE [Primary Care Provider] - Time spent managing pt's care (in minutes): 60
[2020-05-27 16:01] LABS: Urine Protein/Creatinine Ratio 1.81 ratio (<0.15)
== END 2020-05-26 21:45 | disposition expired | DRG 871 ==
LOC: ER 18:53 → ERHOLD 23:36 → 4TH 05-17 12:51 → 3RD-ICU 05-26 16:45
PROVIDERS: ADMIT Internal Medicine; ATTEND Hospitalist
PROC: 06HY33Z Insertion of Infusion Device into Lower Vein, Percutaneous Approach (ICD-10-PCS; principal; 2020-05-15)
PROC: 5A12012 Performance of Cardiac Output, Single, Manual (ICD-10-PCS; 2020-05-26)
PROC: 0BH17EZ Insertion of Endotracheal Airway into Trachea, Via Natural or Artificial Opening (ICD-10-PCS; 2020-05-26)
DX: A41.81 Sepsis due to Enterococcus (principal); E11.10 Type 2 diabetes mellitus with ketoacidosis without coma; U07.1 COVID-19; J12.82 Pneumonia due to coronavirus disease 2019; G93.41 Metabolic encephalopathy; J96.01 Acute respiratory failure with hypoxia; R65.21 Severe sepsis with septic shock; N17.0 Acute kidney failure with tubular necrosis; E87.2 Acidosis; N39.0 Urinary tract infection, site not specified; E87.1 Hypo-osmolality and hyponatremia; Z16.23 Resistance to quinolones and fluoroquinolones; Z16.19 Resistance to other specified beta lactam antibiotics; T79.7XXA Traumatic subcutaneous emphysema, initial encounter; N13.6 Pyonephrosis; J95.811 Postprocedural pneumothorax; A41.51 Sepsis due to Escherichia coli [E. coli]; A41.52 Sepsis due to Pseudomonas; I46.8 Cardiac arrest due to other underlying condition; I10 Essential (primary) hypertension; E86.0 Dehydration; I49.01 Ventricular fibrillation; K57.90 Diverticulosis of intestine, part unspecified, without perforation or abscess without bleeding; E87.6 Hypokalemia; E03.9 Hypothyroidism, unspecified; I95.89 Other hypotension; B95.62 Methicillin resistant Staphylococcus aureus infection as the cause of diseases classified elsewhere; R57.1 Hypovolemic shock; R45.1 Restlessness and agitation; R79.89 Other specified abnormal findings of blood chemistry; Y84.8 Other medical procedures as the cause of abnormal reaction of the patient, or of later complication, without mention of misadventure at the time of the procedure; Z79.890 Hormone replacement therapy; Z88.8 Allergy status to other drugs, medicaments and biological substances; Z79.899 Other long term (current) drug therapy
CPT/HCPCS: 36415; 70450; 71045; 71260; 71275; 74018; 74177; 76770; 80048; 80053; 80061; 80069; 80076; 80202; 81003; 81015; 82533; 82570; 82728; 82805; 82947; 83605; 83615; 83735; 83935; 83970; 84145; 84156; 84443; 84484; 85025; 85027; 85379; 85610; 85730; 86140; 87040; 87077; 87086; 87088; 87186; 87205; 87324; 87449; 92610; 93005; 93306; 93971; 94760; 95816; 99285; J0171; J0295; J0360; J0610; J0692; J0696; J1630; J1650; J1815; J2250; J2543; J2920; J2930; J3010; J3370; J3411; J3475; J3480; J3486; J7030; J7040; J7050; J7060; J7120; J7799; P9047; Q9967; U0003